=== PATIENT | male | born 1950 | race American Indian/Alaskan Native ===

== ENCOUNTER 2017-08-25 05:27 | Emergency (ER) | payer OTHER ==
--- NOTE | 2017-08-25 06:41 | XRay Report ---
FINAL REPORT PROCEDURE: XR CHEST ROUTINE 2V TECHNIQUE: PA and lateral chest radiographs were obtained. CPT 20784 HISTORY: Shortness of breath COMPARISON: No prior studies are available for comparison. FINDINGS: Heart: Normal. Mediastinum/Vessels: Normal. Lungs/Pleural space: Normal. Bony thorax: No acute osseous abnormality. Other: IMPRESSION: There is no evidence of an acute cardiopulmonary process..
[2017-08-25 06:58] LABS: Basophils % (Auto) 0.2 % (0.0-1.8); Eosinophils % (Auto) 0.7 % (0.0-4.3); Hematocrit 43.3 % (35.5-45.6); Hemoglobin 14.1 gm/dl (11.8-15.2); Lymphocytes # (Auto) 1.5 K/mm3 (1.2-5.4); Lymphocytes % (Auto) 23.9 % (13.4-35.0); Mean Corpuscular HGB Conc 33 % (32-34); Mean Corpuscular Hemoglobin 32 pg (28-32); Mean Corpuscular Volume 97 fl (84-94); Monocytes # (Auto) 0.6 K/mm3 (0.0-0.8); Monocytes % (Auto) 10.2 % (0.0-7.3); Platelet Count 145 K/mm3 (140-440); Red Blood Count 4.45 M/mm3 (3.65-5.03); Red Cell Distribution Width 12.6 % (13.2-15.2)
[2017-08-25 07:05] LABS: BUN/Creatinine Ratio 17; Blood Urea Nitrogen 12 mg/dL (9-20); Calcium 9.3 mg/dL (8.4-10.2); Hemolysis Index 15
[2017-08-25] MEDS ORDERED: PROVENTIL IH ONE ×2 (08:37→08:38)
[2017-08-25] MEDS ORDERED: ATROVENT IH ONE ×2 (08:37→08:38)
[2017-08-25] MEDS ORDERED: TYLENOL PO ONE (08:38)
[2017-08-25] MEDS ORDERED: BOOSTRIX IM ONE (08:38)
[2017-08-25] MEDS ORDERED: NACL 0.9% 500 ML 500 ML IV ONE (08:38)
--- NOTE | 2017-08-25 08:39 | Emergency Department Report ---
ED General Adult HPI - General Chief complaint: Dyspnea/Respdistress Stated complaint: DIFFICULTY IN BREATHING Time Seen by Provider: 08/25/17 08:13 Source: patient, EMS (ems notes not available at time of chart dictation), RN notes reviewed Mode of arrival: Stretcher Limitations: No Limitations - History of Present Illness Initial comments: This is a 66-year-old male who is unknown to this provider previously, oxygen dependent, has a past medical history of COPD, hypertension. Patient presents to the ER with complaint of lip pain and swelling after mechanical fall yesterday. He denies severe headache, chest pain, abdominal pain, midline neck pain, weakness, numbness. He has chronic shortness of breath, which is not a new, worsening or different. He denies DVT, pulmonary embolus risk factors. he has chronic cough which is not a new, worsening or different, and he is not bringing up any significant mucus -: Sudden Location: face, mouth Quality: aching Consistency: constant Improves with: rest Worsens with: movement Associated Symptoms: cough, shortness of breath. denies: confusion, chest pain , diaphoresis, fever/chills, headaches, loss of appetite, malaise, nausea/ vomiting, rash, seizure, syncope, weakness - Related Data Previous Rx's Medication Instructions Recorded Last Taken Type Acetaminophen [Tylenol Arthritis] 650 mg PO Q6HR PRN #30 tablet.er 08/25/17 Unknown Rx Albuterol Sulfate [Proair 90 mcg IH Q4HR PRN #2 aer.pow.ba 08/25/17 Unknown Rx Respiclick] Bacitracin Zinc Oint [Antibiotic 1 applicatio TP BID #1 tube 08/25/17 Unknown Rx Oint] Ibuprofen [Motrin] 600 mg PO Q8H PRN #30 tablet 08/25/17 Unknown Rx Ipratropium Kenvir [Atrovent Hfa] 12.9 gm IH Q4HR #2 hfa.aer.ad 08/25/17 Unknown Rx Allergies Allergy/AdvReac Type Severity Reaction Status Date / Time No Known Allergies Allergy Unverified 08/25/17 06:06 ED Review of Systems ROS: Stated complaint: DIFFICULTY IN BREATHING Other details as noted in HPI Comment: All other systems reviewed and negative ED Past Medical Hx - Social History Smoking Status: Unknown if ever smoked Substance Use Type: None - Medications Home Medications: Home Medications Medication Instructions Recorded Confirmed Last Taken Type Acetaminophen [Tylenol Arthritis] 650 mg PO Q6HR PRN #30 tablet.er 08/25/17 Unknown Rx Albuterol Sulfate [Proair 90 mcg IH Q4HR PRN #2 aer.pow.ba 08/25/17 Unknown Rx Respiclick] Bacitracin Zinc Oint [Antibiotic 1 applicatio TP BID #1 tube 08/25/17 Unknown Rx Oint] Ibuprofen [Motrin] 600 mg PO Q8H PRN #30 tablet 08/25/17 Unknown Rx Ipratropium Kenvir [Atrovent Hfa] 12.9 gm IH Q4HR #2 hfa.aer.ad 08/25/17 Unknown Rx ED Physical Exam - General Limitations: No Limitations General appearance: alert, in no apparent distress - Head Head exam: Present: atraumatic, normocephalic - Eye Eye exam: Present: normal appearance, PERRL, EOMI. Absent: nystagmus - ENT ENT exam: Present: mucous membranes moist, TM's normal bilaterally, normal external ear exam, other (there is no mastoid tenderness. Tympanic membranes clear on the right side, left external auditory canal is obscured by wax.). Absent: normal exam (superficial superior and inferior lip swelling is noted. No obvious laceration. No induration. Crust-like discharge noted on the superior frenulum.), normal orophraynx - Neck Neck exam: Present: normal inspection, full ROM. Absent: tenderness, meningismus - Respiratory Respiratory exam: Present: normal lung sounds bilaterally, decreased breath sounds. Absent: respiratory distress, wheezes, rales, rhonchi, stridor - Cardiovascular Cardiovascular Exam: Present: regular rate, normal rhythm, normal heart sounds. Absent: bradycardia, tachycardia, irregular rhythm, systolic murmur, diastolic murmur, rubs, gallop - GI/Abdominal GI/Abdominal exam: Present: soft, normal bowel sounds. Absent: distended, tenderness, guarding, rebound, rigid, pulsatile mass - Rectal Rectal exam: Present: deferred - Extremities Exam Extremities exam: Present: normal inspection, full ROM, normal capillary refill , other (there is no palpable cord. There is negative Homans sign.). Absent: pedal edema, calf tenderness - Back Exam Back exam: Present: normal inspection, full ROM. Absent: tenderness, CVA tenderness (R), paraspinal tenderness, vertebral tenderness - Neurological Exam Neurological exam: Present: alert, oriented X3, CN II-XII intact, normal gait, other (Extraocular movements intact. Tongue midline. No facial droop. Facial sensation intact to light touch in the V1, V2, V3 distribution bilaterally. 5 and 5 strength in 4 extremities.. Sensation is intact to light touch in 4 extremities.). Absent: motor sensory deficit - Psychiatric Psychiatric exam: Present: normal affect, normal mood - Skin Skin exam: Present: warm, dry, intact, normal color. Absent: rash ED Course Vital Signs 08/25/17 08/25/17 08/25/17 05:30 05:46 06:00 Temperature Pulse Rate 72 80 Pulse Rate [ Anterior Bilateral Throughout] Respiratory 22 27 H Rate Respiratory Rate [Anterior Bilateral Throughout] Blood Pressure 162/66 163/65 Blood Pressure [Left] O2 Sat by Pulse 96 97 96 Oximetry 08/25/17 08/25/17 08/25/17 06:16 06:30 06:46 Temperature Pulse Rate 84 81 Pulse Rate [ Anterior Bilateral Throughout] Respiratory 28 H 21 17 Rate Respiratory Rate [Anterior Bilateral Throughout] Blood Pressure 163/65 163/65 Blood Pressure [Left] O2 Sat by Pulse 97 95 100 Oximetry 08/25/17 08/25/17 08/25/17 06:58 06:59 07:39 Temperature 97.8 F 98.5 F Pulse Rate 102 H 103 H Pulse Rate [ Anterior Bilateral Throughout] Respiratory 32 H Rate Respiratory Rate [Anterior Bilateral Throughout] Blood Pressure Blood Pressure 117/85 [Left] O2 Sat by Pulse 100 Oximetry 08/25/17 08/25/17 09:10 10:02 Temperature Pulse Rate Pulse Rate [ 86 102 H Anterior Bilateral Throughout] Respiratory Rate Respiratory 20 20 Rate [Anterior Bilateral Throughout] Blood Pressure Blood Pressure [Left] O2 Sat by Pulse Oximetry - Reevaluation(s) Reevaluation #1: 08/25/17 10:11 Differential diagnosis, including not limited to: Chronic COPD, contusions, intracranial injury, facial fracture Assessment and plan: This 66-year-old male with a primary complaint of traumatic lip swelling. He is afebrile with reassuring vital signs, has a GCS of 15, with an NIH score of 0 and is clinically sober.Patient is clinically sober at this time. The cervical spine is cleared through nexus and salvadorean c spine rule Noncontrast CT scan of the brain and face did not demonstrate any significant traumatic abnormalities that would require transfer or emergent surgical intervention. The patient is not having left-sided ear pain or left-sided mastoid tenderness, bilateral mastoids are nontender, clinically therefore patient's does not have mastoiditis. The patient is chronically short of breath but is not acutely decompensated, his arterial blood gas to al showed mild hypercapnia but he was not encephalopathic, and he is not wheezing. The patient will be discharged with as needed albuterol, Atrovent, pain medication, warm compresses, and bacitracin. He was also given an a tetanus vaccination. He can follow up with an outpatient ENT or facial plastics person for his multiple incidental CT scan findings. ED Medical Decision Making - Lab Data Result diagrams: 08/25/17 06:24 08/25/17 06:24 Vital Signs 08/25/17 08/25/17 08/25/17 05:30 05:46 06:00 Temperature Pulse Rate 72 80 Pulse Rate [ Anterior Bilateral Throughout] Respiratory 22 27 H Rate Respiratory Rate [Anterior Bilateral Throughout] Blood Pressure 162/66 163/65 Blood Pressure [Left] O2 Sat by Pulse 96 97 96 Oximetry 08/25/17 08/25/17 08/25/17 06:16 06:30 06:46 Temperature Pulse Rate 84 81 Pulse Rate [ Anterior Bilateral Throughout] Respiratory 28 H 21 17 Rate Respiratory Rate [Anterior Bilateral Throughout] Blood Pressure 163/65 163/65 Blood Pressure [Left] O2 Sat by Pulse 97 95 100 Oximetry 08/25/17 08/25/17 08/25/17 06:58 06:59 07:39 Temperature 97.8 F 98.5 F Pulse Rate 102 H 103 H Pulse Rate [ Anterior Bilateral Throughout] Respiratory 32 H Rate Respiratory Rate [Anterior Bilateral Throughout] Blood Pressure Blood Pressure 117/85 [Left] O2 Sat by Pulse 100 Oximetry 08/25/17 08/25/17 09:10 10:02 Temperature Pulse Rate Pulse Rate [ 86 102 H Anterior Bilateral Throughout] Respiratory Rate Respiratory 20 20 Rate [Anterior Bilateral Throughout] Blood Pressure Blood Pressure [Left] O2 Sat by Pulse Oximetry Lab Results 08/25/17 08/25/17 08/25/17 Range/Units 06:24 06:24 09:15 WBC 6.4 (4.5-11.0) K/mm3 RBC 4.45 (3.65-5.03) M/mm3 Hgb 14.1 (11.8-15.2) gm/dl Hct 43.3 (35.5-45.6) % MCV 97 H (84-94) fl MCH 32 (28-32) pg MCHC 33 (32-34) % RDW 12.6 L (13.2-15.2) % Plt Count 145 (140-440) K/mm3 Lymph % (Auto) 23.9 (13.4-35.0) % [place] % (Auto) 10.2 H (0.0-7.3) % Eos % (Auto) 0.7 (0.0-4.3) % Baso % (Auto) 0.2 (0.0-1.8) % Lymph # 1.5 (1.2-5.4) K/mm3 [place] # 0.6 (0.0-0.8) K/mm3 Eos # 0.0 (0.0-0.4) K/mm3 Baso # 0.0 (0.0-0.1) K/mm3 Seg Neutrophils % 65.0 (40.0-70.0) % Seg Neutrophils # 4.1 (1.8-7.7) K/mm3 POC ABG pH 7.389 (7.35-7.45) POC ABG pCO2 61.2 H (35-45) POC ABG pO2 91 (80-105) POC ABG HCO3 37.0 POC ABG Total CO2 39 POC ABG O2 Sat 97 POC ABG Base Excess 12 FiO2 32 % Sodium 138 (137-145) mmol/L Potassium 4.0 (3.6-5.0) mmol/L Chloride 94.4 L (98-107) mmol/L Carbon Dioxide 35 H (22-30) mmol/L Anion Gap 13 mmol/L BUN 12 (9-20) mg/dL Creatinine 0.7 L (0.8-1.5) mg/dL Estimated GFR > 60 ml/min BUN/Creatinine Ratio 17 % Glucose 98 (75-100) mg/dL Calcium 9.3 (8.4-10.2) mg/dL - EKG Data -: EKG Interpreted by Me - EKG Data When compared to previous EKG there are: previous EKG unavailable 08/25/17 10:11 Normal sinus, 99 bpm, left axis deviation, a chill enlargement, motion artifact , left anterior fascicular block, abnormal EKG, not a stemi - Radiology Data Radiology results: report reviewed, image reviewed Print Report Referring Physician: JAMA WRAY Patient Name: BOWEN HORN Date of : 1950 Sex: Male Report Date: 2017-08-25 Report Status: Finalized Findings [facility] [address] [place] [address] Cat Scan Report Signed Patient: BOWEN HORN MR#: [id number] : 1950 Acct:[id number] Age/Sex: 66 / M ADM Date: 08/25/17 Loc: ED Attending Dr: Ordering Physician: JAMA WRAY MD Date of Service: 08/25/17 Procedure(s): CT head/brain wo con Accession Number(s): [id number] cc: JAMA WRAY MD CT HEAD WITHOUT CONTRAST INDICATION: Fall. COMPARISON: None similar. FINDINGS: Noncontrast head CT demonstrates normal ventricles and sulci without acute infarct, hemorrhage, mass effect or midline shift. No abnormal extra axial fluid collections. Mild periventricular and few white matter hypodense small vessel ischemic disease. Grossly normal posterior fossa with preserved basilar cisterns. Normal imaged eye globes. Clear paranasal sinuses and right mastoid air cells. Extensive left mastoid air cell opacification. Mild atherosclerotic ICA calcifications. Nasal soft tissue swelling though possible with few small nonspecific radiodensities/possible foreign bodies, amongst others, as on axial series 3, images 3-5. Intact calvarium. Normal scalp. Edentulous jaw. Cervical spondylosis. CONCLUSION: Severe left mastoiditis without acute intracranial CT abnormality, as described. Nasal injury suspected, as described. Please correlate. Thank you for the opportunity to participate in this patient's care. Transcribed By: RS Dictated By: PAIGE GILLIS MD Electronically Authenticated By: PAIGE GILLIS MD Signed Date/Time: 08/25/17 0916 Print Report Referring Physician: JAMA WRAY Patient Name: BOWEN HORN Date of : 1950 Sex: Male Report Date: 2017-08-25 Report Status: Finalized Findings [facility] [address] [place] [id number] Cat Scan Report Signed Patient: BOWEN HORN MR#: [id number] : 1950 Acct:[id number] Age/Sex: 66 / M ADM Date: 08/25/17 Loc: ED Attending Dr: Ordering Physician: JAMA WRAY MD Date of Service: 08/25/17 Procedure(s): CT facial bones wo con Accession Number(s): [id number] cc: JAMA WRYA MD CT FACIAL BONES WITHOUT CONTRAST: INDICATION: Fall. Facial trauma, swelling. COMPARISON: None similar. FINDINGS: Noncontrast axial, sagittal and coronal CT reconstructions through the face suggests soft tissue swelling of the nose and upper lip/anterior face, right slightly more than left. Numerous nonspecific superficial subcutaneous and bilateral malar hyperdensities/calcifications incidentally noted as on axial series 2, images 13-40. Few small nasal soft tissue radiodensities as on axial images 38 and 39 also nonspecific. Nasal bone grossly intact as also the remainder facial bones. Preserved airway. Mild left maxillary sinus mucosal nasal thickening inferiorly. Clear remainder anterior paranasal sinuses and right mastoid air cells. Left mastoid air cells completely opacified with minimal mucosal thickening in the left middle ear posteriorly also possible as on axial image 83, series 3. Normal eye globes and imaged intracranial appearance. Slight leftward nasal septal deviation and approximately 4 mm leftward nasal septal spur as on coronal image 41. Patent ostiomeatal complexes. Intact TMJs. Cervical spondylosis. CONCLUSION: No acute significantly displaced facial fractures, though nose/anterior face soft tissue posttraumatic swelling suspected with severe left mastoiditis/slight otitis media and mild left maxillary sinus mucosal thickening incidentally noted, as described. Please correlate. Thank you for the opportunity to participate in this patient's care. Transcribed By: RS Dictated By: PAIGE GILLIS MD Electronically Authenticated By: PAIGE GILLIS MD Signed Date/Time: 08/25/17928 DD/ 7 TD/TT: 08/25/17928 Print Report Referring Physician: ED DOC Patient Name: BOWEN HORN Date of : 1950 Sex: Male Report Date: 2017-08-25 Report Status: Finalized Findings [facility] [address] [place] [address] XRay Report Signed Patient: BOWEN HORN MR#: [id number] : 1950 Acct:[id number] Age/Sex: 66 / M ADM Date: 08/25/17 Loc: ED Attending Dr: Ordering Physician: DENISE CAMACHO MD Date of Service: 08/25/17 Procedure(s): XR chest routine 2V Accession Number(s): [id number] cc: DENISE CAMACHO MD Fluoro Time In Minutes: FINAL REPORT PROCEDURE: XR CHEST ROUTINE 2V TECHNIQUE: PA and lateral chest radiographs were obtained. CPT 42374 HISTORY: Shortness of breath COMPARISON: No prior studies are available for comparison. FINDINGS: Heart: Normal. Mediastinum/Vessels: Normal. Lungs/Pleural space: Normal. Bony thorax: No acute osseous abnormality. Other: IMPRESSION: There is no evidence of an acute cardiopulmonary process.. Transcribed By: [facility] Dictated By: PADMINI POSADAS MD Electronically Authenticated By: PADMINI POSADAS MD Signed Date/Time: 08/25/17636 Critical care attestation.: If time is entered above; I have spent that time in minutes in the direct care of this critically ill patient, excluding procedure time. ED Disposition Clinical Impression: History of COPD, Facial contusion Disposition: DC-01 TO HOME OR SELFCARE Is pt being admited?: No Does the pt Need Aspirin: No Condition: Stable Instructions: Chronic Bronchitis (ED), Contusion in Adults (ED) Additional Instructions: Rest, and avoid heavy lifting and avoid strenuous physical activity. Continue home oxygen therapy, take the medications as needed/directed. Apply warm compresses to swollen lip. Use albuterol, Atrovent as needed for cough, wheezing, shortness of breath as directed. CT scan of the brain, facial bones demonstrated no fracture or significant injury, however multiple incidental nonemergent findings were noted, which should be followed up within the next 4- 6 weeks. Therefore, follow-up with either a facial plastic surgeon, or otolaryngology specialist for these findings within the recommended timeframe. Dr. Lawson is a local chairman. Dr. Marquez is a local plastic surgeon. Follow up with a case specialist within the next 4-[address] Obregon is a local case specialist. Follow-up with primary care doctor within the next 4-[address] Demarco is a local primary care doctor. Return to the ER right away with new pain, worsened pain, migration of pain, fevers, chills, lethargy, irritability, projectile vomiting, change in mental status, confusion, inability to tolerate liquid feeds. Referrals: PRIMARY CARE, [Primary Care Provider] - 3-5 Days MARCO STUBBS MD [Staff Physician] - 3-5 Days NILAY MARQUEZ MD [Staff Physician] - 3-5 Days LIU DEMARCO MD [Staff Physician] - 3-5 Days BEBE OBREGON MD [Staff Physician] - 3-5 Days
--- NOTE | 2017-08-25 09:23 | Cat Scan Report ---
CT HEAD WITHOUT CONTRAST INDICATION: Fall. COMPARISON: None similar. FINDINGS: Noncontrast head CT demonstrates normal ventricles and sulci without acute infarct, hemorrhage, mass effect or midline shift. No abnormal extra axial fluid collections. Mild periventricular and few white matter hypodense small vessel ischemic disease. Grossly normal posterior fossa with preserved basilar cisterns. Normal imaged eye globes. Clear paranasal sinuses and right mastoid air cells. Extensive left mastoid air cell opacification. Mild atherosclerotic ICA calcifications. Nasal soft tissue swelling though possible with few small nonspecific radiodensities/possible foreign bodies, amongst others, as on axial series 3, images 3-5. Intact calvarium. Normal scalp. Edentulous jaw. Cervical spondylosis. CONCLUSION: Severe left mastoiditis without acute intracranial CT abnormality, as described. Nasal injury suspected, as described. Please correlate. Thank you for the opportunity to participate in this patient's care.
--- NOTE | 2017-08-25 09:35 | Cat Scan Report ---
CT FACIAL BONES WITHOUT CONTRAST: INDICATION: Fall. Facial trauma, swelling. COMPARISON: None similar. FINDINGS: Noncontrast axial, sagittal and coronal CT reconstructions through the face suggests soft tissue swelling of the nose and upper lip/anterior face, right slightly more than left. Numerous nonspecific superficial subcutaneous and bilateral malar hyperdensities/calcifications incidentally noted as on axial series 2, images 13-40. Few small nasal soft tissue radiodensities as on axial images 38 and 39 also nonspecific. Nasal bone grossly intact as also the remainder facial bones. Preserved airway. Mild left maxillary sinus mucosal nasal thickening inferiorly. Clear remainder anterior paranasal sinuses and right mastoid air cells. Left mastoid air cells completely opacified with minimal mucosal thickening in the left middle ear posteriorly also possible as on axial image 83, series 3. Normal eye globes and imaged intracranial appearance. Slight leftward nasal septal deviation and approximately 4 mm leftward nasal septal spur as on coronal image 41. Patent ostiomeatal complexes. Intact TMJs. Cervical spondylosis. CONCLUSION: No acute significantly displaced facial fractures, though nose/anterior face soft tissue posttraumatic swelling suspected with severe left mastoiditis/slight otitis media and mild left maxillary sinus mucosal thickening incidentally noted, as described. Please correlate. Thank you for the opportunity to participate in this patient's care.
[2017-08-25 11:17] VITALS: BP 118/64
== END 2017-08-25 11:18 | disposition home or self-care (01) ==
LOC: ED 05:27
DX: S00.83XA Contusion of other part of head, initial encounter (principal); J44.9 Chronic obstructive pulmonary disease, unspecified; W19.XXXA Unspecified fall, initial encounter; Y93.89 Activity, other specified; Y92.89 Other specified places as the place of occurrence of the external cause; Y99.8 Other external cause status
CPT/HCPCS: 36415; 70450; 70486; 71046; 80048; 82803; 85025; 90471; 90715; 93005; 93010; 94644; 99285; J7040

== ENCOUNTER 2018-08-24 20:08 | Inpatient (IN) | payer MEDICARE ==
[2018-08-24] MEDS ORDERED: ATROVENT IH ONE ×2 (20:31→20:48)
[2018-08-24] MEDS ORDERED: PROVENTIL IH ONE ×2 (20:31→20:48)
[2018-08-24] MEDS ORDERED: NACL 0.9% 1000 ML 1,000 ML IV ONE (20:48)
[2018-08-24] MEDS ORDERED: SOLU-Medrol IV ONE (20:48)
--- NOTE | 2018-08-24 20:49 | Emergency Department Report ---
ED Shortness of Breath HPI - General Chief Complaint: Dyspnea/Respdistress Stated Complaint: BRIELLE Time Seen by Provider: 08/24/18 20:47 Source: EMS (ems notes not available at time of chart dictation), RN notes reviewed, old records reviewed Mode of arrival: Stretcher Limitations: Physical Limitation - History of Present Illness Initial Comments: This is a 67-year-old gentleman. The patient states he does not have a local primary care doctor that he can recall. He believes that his primary material requisitioner is Dr. Lakhani His past medical history includes COPD, home oxygen dependent, hypertension The patient presents to the emergency room today with a complaint of painless cough, wheezing, mucus production and shortness of breath. He denies DVT, pulmonary embolus risk factors. He is treated with albuterol, Atrovent, steroids. He feels improved. He endorses coughing so much that he has right- sided neck pain, and difficulty with swallowing food. MD Complaint: shortness of breath, cough -: Gradual Severity: moderate Consistency: constant Improves With: oxygen, rest, bronchodilators, upright position, medication Worsens With: lying flat, exertion, eating Known History Of: COPD - Related Data Previous Rx's Medication Instructions Recorded Last Taken Type Acetaminophen [Tylenol Arthritis] 650 mg PO Q6HR PRN #30 tablet.er 08/25/17 Unknown Rx Albuterol Sulfate [Proair 90 mcg IH Q4HR PRN #2 aer.pow.ba 08/25/17 Unknown Rx Respiclick] Bacitracin Zinc Oint [Antibiotic 1 applicatio TP BID #1 tube 08/25/17 Unknown Rx Oint] Ibuprofen [Motrin] 600 mg PO Q8H PRN #30 tablet 08/25/17 Unknown Rx Ipratropium [place] [Atrovent Hfa] 12.9 gm IH Q4HR #2 hfa.[email or web address] 08/25/17 Unknown Rx Allergies Allergy/AdvReac Type Severity Reaction Status Date / Time No Known Allergies Allergy Unverified 08/25/17 06:06 ED Review of Systems ROS: Stated complaint: BRIELLE Other details as noted in HPI Constitutional: malaise. denies: fever Eyes: denies: eye discharge ENT: throat pain, congestion Respiratory: cough, shortness of breath, SOB with exertion, SOB at rest, wheezing Cardiovascular: dyspnea on exertion Gastrointestinal: denies: nausea, vomiting Genitourinary: denies: dysuria Musculoskeletal: arthralgia Skin: denies: lesions Neurological: weakness Psychiatric: anxiety ED Past Medical Hx - Past Medical History Hx COPD: Yes Additional medical history: emphysema - Social History Smoking Status: Former Smoker Substance Use Type: Alcohol - Medications Home Medications: Home Medications Medication Instructions Recorded Confirmed Last Taken Type Acetaminophen [Tylenol Arthritis] 650 mg PO Q6HR PRN #30 tablet.er 08/25/17 Unknown Rx Albuterol Sulfate [Proair 90 mcg IH Q4HR PRN #2 aer.pow.ba 08/25/17 Unknown Rx Respiclick] Bacitracin Zinc Oint [Antibiotic 1 applicatio TP BID #1 tube 08/25/17 Unknown Rx Oint] Ibuprofen [Motrin] 600 mg PO Q8H PRN #30 tablet 08/25/17 Unknown Rx Ipratropium [place] [Atrovent Hfa] 12.9 gm IH Q4HR #2 hfa.aer.ad 08/25/17 Unknown Rx ED Physical Exam - General Limitations: Physical Limitation General appearance: alert, in distress - Head Head exam: Present: atraumatic, normocephalic - Eye Eye exam: Present: normal appearance, EOMI. Absent: nystagmus - ENT ENT exam: Present: normal orophraynx, mucous membranes moist, normal external ear exam, other (patient is edentulous. Speaking in full sentences. There is no stridor. There is no elevation of the base of the tongue.) - Neck Neck exam: Present: normal inspection, full ROM. Absent: tenderness, meningismus - Respiratory Respiratory exam: Present: respiratory distress, wheezes, rhonchi, accessory muscle use, decreased breath sounds - Cardiovascular Cardiovascular Exam: Present: regular rate, normal rhythm, normal heart sounds. Absent: bradycardia, tachycardia, irregular rhythm, systolic murmur, diastolic murmur, rubs, gallop - GI/Abdominal GI/Abdominal exam: Present: soft. Absent: distended, tenderness, guarding, rebound, rigid, pulsatile mass - Rectal Rectal exam: Present: deferred - Extremities Exam Extremities exam: Present: normal inspection, full ROM, other (2+ pulses noted in the bilateral upper, lower extremities. Compartments soft. No long bony tenderness. The pelvis is stable.). Absent: pedal edema, calf tenderness - Back Exam Back exam: Present: normal inspection, full ROM. Absent: tenderness, CVA tenderness (R), CVA tenderness (L), paraspinal tenderness, vertebral tenderness - Neurological Exam Neurological exam: Present: alert, other (Extraocular movements intact. Tongue midline. No facial droop. Facial sensation intact to light touch in the V1, V2, V3 distribution bilaterally. 5 and 5 strength in 4 extremities.. Sensation is intact to light touch in 4 extremities.). Absent: motor sensory deficit - Psychiatric Psychiatric exam: Present: anxious - Skin Skin exam: Present: warm, dry, intact, normal color. Absent: rash ED Course Vital Signs 08/24/18 08/24/18 08/24/18 20:22 20:26 20:30 Temperature 98.2 F Pulse Rate 95 H 106 H 109 H Pulse Rate [ 102 H Posterior Bilateral Throughout] Respiratory 24 21 Rate Respiratory 18 Rate [Posterior Bilateral Throughout] Blood Pressure 136/92 Blood Pressure 136/92 [Left] O2 Sat by Pulse 99 99 Oximetry 08/24/18 08/24/18 08/24/18 20:46 21:00 21:15 Temperature Pulse Rate 105 H 102 H 105 H Pulse Rate [ Posterior Bilateral Throughout] Respiratory 19 11 L 22 Rate Respiratory Rate [Posterior Bilateral Throughout] Blood Pressure 129/85 129/94 126/86 Blood Pressure [Left] O2 Sat by Pulse 99 96 96 Oximetry 08/24/18 08/24/18 08/24/18 21:30 21:32 21:46 Temperature Pulse Rate 106 H 104 H Pulse Rate [ 107 H Posterior Bilateral Throughout] Respiratory 19 Rate Respiratory 22 Rate [Posterior Bilateral Throughout] Blood Pressure 136/83 136/84 Blood Pressure [Left] O2 Sat by Pulse 95 Oximetry - Reevaluation(s) Reevaluation #1: 08/24/18 22:14 We'll defer to inpatient team to evaluate leukopenia and thrombocytopenia. ED Medical Decision Making - Lab Data Result diagrams: 08/24/18 20:40 08/24/18 20:40 Vital Signs 08/24/18 08/24/18 08/24/18 20:22 20:26 20:30 Temperature 98.2 F Pulse Rate 95 H 106 H 109 H Pulse Rate [ 102 H Posterior Bilateral Throughout] Respiratory 24 21 Rate Respiratory 18 Rate [Posterior Bilateral Throughout] Blood Pressure 136/92 Blood Pressure 136/92 [Left] O2 Sat by Pulse 99 99 Oximetry 08/24/18 08/24/18 08/24/18 20:46 21:00 21:15 Temperature Pulse Rate 105 H 102 H 105 H Pulse Rate [ Posterior Bilateral Throughout] Respiratory 19 11 L 22 Rate Respiratory Rate [Posterior Bilateral Throughout] Blood Pressure 129/85 129/94 126/86 Blood Pressure [Left] O2 Sat by Pulse 99 96 96 Oximetry 08/24/18 08/24/18 08/24/18 21:30 21:32 21:46 Temperature Pulse Rate 106 H 104 H Pulse Rate [ 107 H Posterior Bilateral Throughout] Respiratory 19 Rate Respiratory 22 Rate [Posterior Bilateral Throughout] Blood Pressure 136/83 136/84 Blood Pressure [Left] O2 Sat by Pulse 95 Oximetry Lab Results 08/24/18 08/24/18 08/24/18 Range/Units 20:40 20:40 21:10 WBC 3.2 L (4.5-11.0) K/mm3 RBC 4.39 (3.65-5.03) M/mm3 Hgb 14.1 (11.8-15.2) gm/dl Hct 41.5 (35.5-45.6) % MCV 95 H (84-94) fl MCH 32 (28-32) pg MCHC 34 (32-34) % RDW 12.2 L (13.2-15.2) % Plt Count 108 L (140-440) K/mm3 Lymph % (Auto) Grain Shipper Add Manual Diff Complete Total Counted 100 Seg Neutrophils % Grain Shipper Seg Neuts % (Manual) 34.0 L (40.0-70.0) % Band Neutrophils % 0 % Lymphocytes % (Manual) 52.0 H (13.4-35.0) % Reactive Lymphs % (Man) 0 % Monocytes % (Manual) 13.0 H (0.0-7.3) % Eosinophils % (Manual) 1.0 (0.0-4.3) % Basophils % (Manual) 0 (0.0-1.8) % Metamyelocytes % 0 % Myelocytes % 0 % Promyelocytes % 0 % Blast Cells % 0 % Nucleated RBC % Not Reportable Seg Neutrophils # Man 1.1 L (1.8-7.7) K/mm3 Band Neutrophils # 0.0 K/mm3 Lymphocytes # (Manual) 1.7 (1.2-5.4) K/mm3 Abs React Lymphs (Man) 0.0 K/mm3 Monocytes # (Manual) 0.4 (0.0-0.8) K/mm3 Eosinophils # (Manual) 0.0 (0.0-0.4) K/mm3 Basophils # (Manual) 0.0 (0.0-0.1) K/mm3 Metamyelocytes # 0.0 K/mm3 Myelocytes # 0.0 K/mm3 Promyelocytes # 0.0 K/mm3 Blast Cells # 0.0 K/mm3 WBC Morphology Not Reportable Hypersegmented Neuts Not Reportable Hyposegmented Neuts Not Reportable Hypogranular Neuts Not Reportable Smudge Cells Not Reportable Toxic Granulation Not Reportable Toxic Vacuolation Not Reportable Dohle Bodies Not Reportable Pelger-Huet Anomaly Not Reportable Kerry Rods Not Reportable Platelet Estimate Appears decreased Clumped Platelets Not Reportable Plt Clumps, EDTA Not Reportable Large Platelets Not Reportable Giant Platelets Not Reportable Platelet Satelliting Not Reportable Plt Morphology Comment Not Reportable RBC Morphology Not Reportable Dimorphic RBCs Not Reportable Polychromasia Not Reportable Hypochromasia Not Reportable Poikilocytosis Not Reportable Anisocytosis Not Reportable Microcytosis Not Reportable Macrocytosis Not Reportable Spherocytes Not Reportable Pappenheimer Bodies Not Reportable Sickle Cells Not Reportable Target Cells Not Reportable Tear Drop Cells Not Reportable Ovalocytes Few Helmet Cells Not Reportable [place] Bodies Not Reportable [place] Rings Not Reportable Natali Cells Not Reportable Bite Cells Not Reportable Crenated Cell Not Reportable Elliptocytes Not Reportable Acanthocytes (Spur) Not Reportable Rouleaux Not Reportable Hemoglobin C Crystals Not Reportable Schistocytes Not Reportable Malaria parasites Not Reportable Tom Bodies Not Reportable Hem Pathologist Commnt No PT 14.8 (12.2-14.9) Sec. INR 1.19 H (0.87-1.13) Sodium 135 L (137-145) mmol/L Potassium 4.3 (3.6-5.0) mmol/L Chloride 93.0 L (98-107) mmol/L Carbon Dioxide 31 H (22-30) mmol/L Anion Gap 15 mmol/L BUN 12 (9-20) mg/dL Creatinine 0.7 L (0.8-1.5) mg/dL Estimated GFR > 60 ml/min BUN/Creatinine Ratio 17 % Glucose 86 (75-100) mg/dL Calcium 9.3 (8.4-10.2) mg/dL Magnesium (1.7-2.3) mg/dL Total Creatine Kinase (55-170) units/L 08/24/18 Range/Units 21:10 WBC (4.5-11.0) K/mm3 RBC (3.65-5.03) M/mm3 Hgb (11.8-15.2) gm/dl Hct (35.5-45.6) % MCV (84-94) fl MCH (28-32) pg MCHC (32-34) % RDW (13.2-15.2) % Plt Count (140-440) K/mm3 Lymph % (Auto) Add Manual Diff Total Counted Seg Neutrophils % Seg Neuts % (Manual) (40.0-70.0) % Band Neutrophils % % Lymphocytes % (Manual) (13.4-35.0) % Reactive Lymphs % (Man) % Monocytes % (Manual) (0.0-7.3) % Eosinophils % (Manual) (0.0-4.3) % Basophils % (Manual) (0.0-1.8) % Metamyelocytes % % Myelocytes % % Promyelocytes % % Blast Cells % % Nucleated RBC % Seg Neutrophils # Man (1.8-7.7) K/mm3 Band Neutrophils # K/mm3 Lymphocytes # (Manual) (1.2-5.4) K/mm3 Abs React Lymphs (Man) K/mm3 Monocytes # (Manual) (0.0-0.8) K/mm3 Eosinophils # (Manual) (0.0-0.4) K/mm3 Basophils # (Manual) (0.0-0.1) K/mm3 Metamyelocytes # K/mm3 Myelocytes # K/mm3 Promyelocytes # K/mm3 Blast Cells # K/mm3 WBC Morphology Hypersegmented Neuts Hyposegmented Neuts Hypogranular Neuts Smudge Cells Toxic Granulation Toxic Vacuolation Dohle Bodies Pelger-Huet Anomaly Kerry Rods Platelet Estimate Clumped Platelets Plt Clumps, EDTA Large Platelets Giant Platelets Platelet Satelliting Plt Morphology Comment RBC Morphology Dimorphic RBCs Polychromasia Hypochromasia Poikilocytosis Anisocytosis Microcytosis Macrocytosis Spherocytes Pappenheimer Bodies Sickle Cells Target Cells Tear Drop Cells Ovalocytes Helmet Cells [place] Bodies [place] Rings Natali Cells Bite Cells Crenated Cell Elliptocytes Acanthocytes (Spur) Rouleaux Hemoglobin C Crystals Schistocytes Malaria parasites Tom Bodies Hem Pathologist Commnt PT (12.2-14.9) Sec. INR (0.87-1.13) Sodium (137-145) mmol/L Potassium (3.6-5.0) mmol/L Chloride (98-107) mmol/L Carbon Dioxide (22-30) mmol/L Anion Gap mmol/L BUN (9-20) mg/dL Creatinine (0.8-1.5) mg/dL Estimated GFR ml/min BUN/Creatinine Ratio % Glucose (75-100) mg/dL Calcium (8.4-10.2) mg/dL Magnesium 2.20 (1.7-2.3) mg/dL Total Creatine Kinase 103 (55-170) units/L - EKG Data -: EKG Interpreted by Fl EKG shows normal: sinus rhythm Rate: tachycardia - EKG Data When compared to previous EKG there are: no significant change 08/24/18 22:12 This is a sinus tachycardia, 100 bpm, normal axis, QTC prolonged, poor R progression, atrial enlargement, motion artifact, no endorsement of chest pain, this is an abnormal EKG, it is not consistent with ST elevation myocardial infarction, appears grossly unchanged from prior EKG from 08/25/2017, with the exception of resolved left axis deviation, and resolved left anterior fascicular block. - Radiology Data Radiology results: report reviewed, image reviewed X-ray of the chest is negative for acute disease. Chronic findings noted. Emphysematous findings noted. - Medical Decision Making Differential diagnosis, including but not limited to: Bronchitis, pneumonia, COPD exacerbation Assessment and plan: 67-year-old gentleman who is ill-appearing, known history of COPD, with cough, wheezing, shortness of breath, retractions. He has no DVT or pulmonary embolus risk factors. He is low risk by well's criteria. He is improved clinically. Still having difficulty breathing, we will admit to the medical service for COPD exacerbation. Dr. Gonzalez of the medical service to admit the patient. Critical care attestation.: If time is entered above; I have spent that time in minutes in the direct care of this critically ill patient, excluding procedure time. ED Disposition Clinical Impression: COPD exacerbation Disposition: OP ADMIT IP TO THIS HOSP Is pt being admited?: Yes Condition: Fair Instructions: Chronic Obstructive Pulmonary Disease (ED) Referrals: ZAKIA SORIA MD [Primary Care Provider] - 3-5 Days
[2018-08-24 21:15] LABS: Hematocrit 41.5 % (35.5-45.6); Hemoglobin 14.1 gm/dl (11.8-15.2); Mean Corpuscular HGB Conc 34 % (32-34); Mean Corpuscular Volume 95 fl (84-94); Platelet Count 108 K/mm3 (140-440); Red Blood Count 4.39 M/mm3 (3.65-5.03); Red Cell Distribution Width 12.2 % (13.2-15.2)
--- NOTE | 2018-08-24 21:24 | XRay Report ---
PROCEDURE: XR CHEST 1V AP TECHNIQUE: Chest radiograph single view. HISTORY: Dyspnea COMPARISONS: Comparison is August 25, 2017 FINDINGS: Heart: Normal. Mediastinum/Vessels: Normal. Lungs/Pleural space: Lungs are hyperinflated with flattening of the diaphragm. No focal infiltrate id entified Bony thorax: No acute osseous abnormality. Life support devices: None. IMPRESSION: Findings most consistent with COPD. This document is electronically signed by Champ Luque MD., August 24 2018 09:21:43 PM ET
[2018-08-24 21:31] LABS: BUN/Creatinine Ratio 17; Blood Urea Nitrogen 12 mg/dL (9-20); Calcium 9.3 mg/dL (8.4-10.2); Hemolysis Index 25
[2018-08-24 21:40] LABS: INR 1.19 (0.87-1.13)
[2018-08-24 21:51] LABS: Total Cells Counted 100
[2018-08-24 21:52] LABS: Basophils % (Manual) 0 % (0.0-1.8); Ovalocytes Few; Platelet Estimate Appears Decreased
[2018-08-24] MEDS ORDERED: VIBRAMYCIN PO ONE (22:09)
[2018-08-24] MEDS ORDERED: ZOFRAN IV PRN (22:33)
[2018-08-24] MEDS ORDERED: TYLENOL PO PRN (22:33)
--- NOTE | 2018-08-24 22:42 | History and Physical Report ---
<REJI SLAUGHTER - Last Filed: 08/25/18 03:28> History of Present Illness Date of examination: 08/24/18 Date of admission: 08/24/2018 Chief complaint: Shortness of breath History of present illness: Patient is a 67-year-old male with PMHx of COPD (home O2 dependent), hypertension, tobacco use disorder who presents to the ER with complaints of productive cough, wheezing, shortness of breath 2 days. Patient states that he had been having trouble breathing at home, he took his nebulizer treatment without relief of his symptoms, patient also reports that the symptoms are associated with shortness of breath, cough. Patient states that he had been coughing for 2 days with whitish sputum production, he complains of increase shortness of breath with activities, chest congestion that has been going on for a week. Patient also reports problem swallowing solid food that is concerning to him, denies sore throat, denies hemoptysis, denies chest pain, denies seizure, denies chills. He reports that he follow with [facility] is Dr. Lakhani for his lungs problem. Patient was evaluated in the ER and admitted for further evaluation of his pulmonary symptoms. Past History Past Medical History: hypertension Past Surgical History: No surgical history Social history: smoking (since age 14, quit 6 months ago) Family history: no significant family history Medications and Allergies Allergies Allergy/AdvReac Type Severity Reaction Status Date / Time No Known Allergies Allergy Unverified 08/25/17 06:06 Home Medications Medication Instructions Recorded Confirmed Last Taken Type Acetaminophen [Tylenol Arthritis] 650 mg PO Q6HR PRN #30 tablet.er 08/25/17 08/25/18 Unknown Rx Albuterol Sulfate [Proair 90 mcg IH Q4HR PRN #2 aer.pow.ba 08/25/17 08/25/18 2 Days Ago Rx Respiclick] ~08/23/18 Ibuprofen [Motrin] 600 mg PO Q8H PRN #30 tablet 08/25/17 08/25/18 Unknown Rx Ipratropium [place] [Atrovent Hfa] 12.9 gm IH Q4HR #2 hfa.aer.ad 08/25/17 08/25/18 2 Days Ago Rx ~08/23/18 Active Meds: Active Medications Acetaminophen (Tylenol) 650 mg PO Q4H PRN PRN Reason: Pain MILD(1-3)/Fever >100.5/VILLALTA Albuterol/Ipratropium (Duoneb *Not For Prn Use*) 1 ampul IH Q6HRT [facility] Methylprednisolone Sodium Succinate (Solu-Medrol) 80 mg IV Q6HR [facility] Ondansetron HCl (Zofran) 4 mg IV Q8H PRN PRN Reason: Nausea And Vomiting Sodium Chloride (Sodium Chloride Flush Syringe 10 Ml) 10 ml IV BID [facility] Sodium Chloride (Sodium Chloride Flush Syringe 10 Ml) 10 ml IV PRN PRN PRN Reason: LINE FLUSH Review of Systems Respiratory: cough, cough with sputum, shortness of breath, dyspnea on exertion, congestion Exam - Constitutional Vitals: Temp Pulse Resp BP Pulse Ox 98.2 F 104 H 22 136/84 95 08/24/18 20:26 08/24/18 21:46 08/24/18 21:32 08/24/18 21:46 08/24/18 21:46 General appearance: Present: no acute distress, mild distress, cachectic - EENT Eyes: Present: EOM intact ENT: hearing intact - Neck Neck: Present: supple, normal ROM - Respiratory Respiratory effort: labored - Cardiovascular Heart Sounds: Present: S1 & S2 - Extremities Extremities: no ischemia Peripheral Pulses: within normal limits - Abdominal General gastrointestinal: Present: deferred Male genitourinary: Present: deferred - Rectal Rectal Exam: deferred - Integumentary Integumentary: Present: clear, warm, dry - Musculoskeletal Musculoskeletal: strength equal bilaterally - Psychiatric Psychiatric: cooperative - Neurologic Neurologic: moves all extremities Results - Labs CBC & Chem 7: 08/24/18 20:40 08/24/18 20:40 Labs: Laboratory Last Values WBC 3.2 K/mm3 (4.5-11.0) L 08/24/18 20:40 RBC 4.39 M/mm3 (3.65-5.03) 08/24/18 20:40 Hgb 14.1 gm/dl (11.8-15.2) 08/24/18 20:40 Hct 41.5 % (35.5-45.6) 08/24/18 20:40 MCV 95 fl (84-94) H 08/24/18 20:40 MCH 32 pg (28-32) 08/24/18 20:40 MCHC 34 % (32-34) 08/24/18 20:40 RDW 12.2 % (13.2-15.2) L 08/24/18 20:40 Plt Count 108 K/mm3 (140-440) L 08/24/18 20:40 Lymph % (Auto) [facility] 08/24/18 20:40 Add Manual Diff Complete 08/24/18 20:40 Total Counted 100 08/24/18 20:40 Seg Neutrophils % [facility] 08/24/18 20:40 Seg Neuts % (Manual) 34.0 % (40.0-70.0) L 08/24/18 20:40 0 % 08/24/18 20:40 52.0 % (13.4-35.0) H 08/24/18 20:40 Reactive Lymphs % (Man) 0 % 08/24/18 20:40 13.0 % (0.0-7.3) H 08/24/18 20:40 1.0 % (0.0-4.3) 08/24/18 20:40 0 % (0.0-1.8) 08/24/18 20:40 0 % 08/24/18 20:40 0 % 08/24/18 20:40 0 % 08/24/18 20:40 0 % 08/24/18 20:40 Nucleated RBC % Not Reportable 08/24/18 20:40 Seg Neutrophils # Man 1.1 K/mm3 (1.8-7.7) L 08/24/18 20:40 Band Neutrophils # 0.0 K/mm3 08/24/18 20:40 1.7 K/mm3 (1.2-5.4) 08/24/18 20:40 Abs React Lymphs (Man) 0.0 K/mm3 08/24/18 20:40 0.4 K/mm3 (0.0-0.8) 08/24/18 20:40 0.0 K/mm3 (0.0-0.4) 08/24/18 20:40 0.0 K/mm3 (0.0-0.1) 08/24/18 20:40 0.0 K/mm3 08/24/18 20:40 0.0 K/mm3 08/24/18 20:40 0.0 K/mm3 08/24/18 20:40 Blast Cells # 0.0 K/mm3 08/24/18 20:40 WBC Morphology Not Reportable 08/24/18 20:40 Hypersegmented Neuts Not Reportable 08/24/18 20:40 Hyposegmented Neuts Not Reportable 08/24/18 20:40 Hypogranular Neuts Not Reportable 08/24/18 20:40 Not Reportable 08/24/18 20:40 Not Reportable 08/24/18 20:40 Not Reportable 08/24/18 20:40 Not Reportable 08/24/18 20:40 Not Reportable 08/24/18 20:40 Not Reportable 08/24/18 20:40 Appears decreased 08/24/18 20:40 Not Reportable 08/24/18 20:40 Plt Clumps, EDTA Not Reportable 08/24/18 20:40 Not Reportable 08/24/18 20:40 Not Reportable 08/24/18 20:40 Not Reportable 08/24/18 20:40 Plt Morphology Comment Not Reportable 08/24/18 20:40 RBC Morphology Not Reportable 08/24/18 20:40 Dimorphic RBCs Not Reportable 08/24/18 20:40 Not Reportable 08/24/18 20:40 Not Reportable 08/24/18 20:40 Not Reportable 08/24/18 20:40 Not Reportable 08/24/18 20:40 Not Reportable 08/24/18 20:40 Not Reportable 08/24/18 20:40 Not Reportable 08/24/18 20:40 Not Reportable 08/24/18 20:40 Not Reportable 08/24/18 20:40 Not Reportable 08/24/18 20:40 Not Reportable 08/24/18 20:40 Few 08/24/18 20:40 Not Reportable 08/24/18 20:40 Not Reportable 08/24/18 20:40 Not Reportable 08/24/18 20:40 Not Reportable 08/24/18 20:40 Not Reportable 08/24/18 20:40 Not Reportable 08/24/18 20:40 Not Reportable 08/24/18 20:40 Acanthocytes (Spur) Not Reportable 08/24/18 20:40 Rouleaux Not Reportable 08/24/18 20:40 Not Reportable 08/24/18 20:40 Not Reportable 08/24/18 20:40 Not Reportable 08/24/18 20:40 Not Reportable 08/24/18 20:40 Hem Pathologist Commnt No 08/24/18 20:40 PT 14.8 Sec. (12.2-14.9) 08/24/18 21:10 INR 1.19 (0.87-1.13) H 08/24/18 21:10 Sodium 135 mmol/L (137-145) L 08/24/18 20:40 Potassium 4.3 mmol/L (3.6-5.0) 08/24/18 20:40 Chloride 93.0 mmol/L (98-107) L 08/24/18 20:40 Carbon Dioxide 31 mmol/L (22-30) H 08/24/18 20:40 15 mmol/L 08/24/18 20:40 BUN 12 mg/dL (9-20) 08/24/18 20:40 0.7 mg/dL (0.8-1.5) L 08/24/18 20:40 Estimated GFR > 60 ml/min 08/24/18 20:40 17 % 08/24/18 20:40 Glucose 86 mg/dL (75-100) 08/24/18 20:40 Calcium 9.3 mg/dL (8.4-10.2) 08/24/18 20:40 Magnesium 2.20 mg/dL (1.7-2.3) 08/24/18 21:10 103 units/L (55-170) 08/24/18 21:10 Assessment and Plan Assessment and plan: 1. COPD/emphysema with acute exacerbation 2. Hypoxia due to above 3. Acute dyspnea 4. HTN (BP stable) 5. H/o tobbaco used disorder 6. Thrombocytopenia Plan: Pt is admitted to [facility] for COPD Continue nebulizer treatmemt PRN for SOB Pulmocort daily O2 to keep sat > 92% Solumedrol 80mg Q6hr Cough supressent with mucinex Resume home meds Plan of care was d/w pt, voiced understanding Pt's condition and plan of care of care discussed with Advance Directives: Yes VTE prophylaxis?: Mechanical Contraindication Mechanical VTE Prophylaxis: Contraindicated Plan of care discussed with patient/family: Yes <SORAYA HATHAWAY Marco Antonio - Last Filed: 08/25/18 06:01> History of Present Illness Date of admission: 08/24/18 22:33 Medications and Allergies Active Meds: Active Medications Acetaminophen (Tylenol) 650 mg PO Q4H PRN PRN Reason: Pain MILD(1-3)/Fever >100.5/VILLALTA Last Admin: 08/25/18 03:01 Dose: 650 mg Documented by: Albuterol/Ipratropium (Duoneb *Not For Prn Use*) 1 ampul IH Q6HRT [facility] Last Admin: 08/25/18 02:48 Dose: 1 ampul Documented by: Methylprednisolone Sodium Succinate (Solu-Medrol) 80 mg IV Q6HR [facility] Last Admin: 08/25/18 05:06 Dose: 80 mg Documented by: Ondansetron HCl (Zofran) 4 mg IV Q8H PRN PRN Reason: Nausea And Vomiting Pneumococcal Polyvalent Vaccine (Pneumovax 23) 0.5 ml IM .ONCE ONE Stop: 08/25/18 12:01 Sodium Chloride (Sodium Chloride Flush Syringe 10 Ml) 10 ml IV BID [facility] Last Admin: 08/24/18 23:11 Dose: 10 ml Documented by: Sodium Chloride (Sodium Chloride Flush Syringe 10 Ml) 10 ml IV PRN PRN PRN Reason: LINE FLUSH Exam - Constitutional Vitals: Temp Pulse Resp BP Pulse Ox 98.0 F 102 H 20 128/92 96 08/24/18 23:54 08/25/18 02:57 08/25/18 02:57 08/25/18 00:02 08/25/18 02:56 Results - Labs CBC & Chem 7: 08/24/18 20:40 08/24/18 20:40 Labs: Laboratory Last Values WBC 3.2 K/mm3 (4.5-11.0) L 08/24/18 20:40 RBC 4.39 M/mm3 (3.65-5.03) 08/24/18 20:40 Hgb 14.1 gm/dl (11.8-15.2) 08/24/18 20:40 Hct 41.5 % (35.5-45.6) 08/24/18 20:40 MCV 95 fl (84-94) H 08/24/18 20:40 MCH 32 pg (28-32) 08/24/18 20:40 MCHC 34 % (32-34) 08/24/18 20:40 RDW 12.2 % (13.2-15.2) L 08/24/18 20:40 Plt Count 108 K/mm3 (140-440) L 08/24/18 20:40 Lymph % (Auto) [facility] 08/24/18 20:40 Add Manual Diff Complete 08/24/18 20:40 Total Counted 100 08/24/18 20:40 Seg Neutrophils % [facility] 08/24/18 20:40 Seg Neuts % (Manual) 34.0 % (40.0-70.0) L 08/24/18 20:40 0 % 08/24/18 20:40 52.0 % (13.4-35.0) H 08/24/18 20:40 Reactive Lymphs % (Man) 0 % 08/24/18 20:40 13.0 % (0.0-7.3) H 08/24/18 20:40 1.0 % (0.0-4.3) 08/24/18 20:40 0 % (0.0-1.8) 08/24/18 20:40 0 % 08/24/18 20:40 0 % 08/24/18 20:40 0 % 08/24/18 20:40 0 % 08/24/18 20:40 Nucleated RBC % Not Reportable 08/24/18 20:40 Seg Neutrophils # Man 1.1 K/mm3 (1.8-7.7) L 08/24/18 20:40 Band Neutrophils # 0.0 K/mm3 08/24/18 20:40 1.7 K/mm3 (1.2-5.4) 08/24/18 20:40 Abs React Lymphs (Man) 0.0 K/mm3 08/24/18 20:40 0.4 K/mm3 (0.0-0.8) 08/24/18 20:40 0.0 K/mm3 (0.0-0.4) 08/24/18 20:40 0.0 K/mm3 (0.0-0.1) 08/24/18 20:40 0.0 K/mm3 08/24/18 20:40 0.0 K/mm3 08/24/18 20:40 0.0 K/mm3 08/24/18 20:40 Blast Cells # 0.0 K/mm3 08/24/18 20:40 WBC Morphology Not Reportable 08/24/18 20:40 Hypersegmented Neuts Not Reportable 08/24/18 20:40 Hyposegmented Neuts Not Reportable 08/24/18 20:40 Hypogranular Neuts Not Reportable 08/24/18 20:40 Not Reportable 08/24/18 20:40 Not Reportable 08/24/18 20:40 Not Reportable 08/24/18 20:40 Not Reportable 08/24/18 20:40 Not Reportable 08/24/18 20:40 Not Reportable 08/24/18 20:40 Appears decreased 08/24/18 20:40 Not Reportable 08/24/18 20:40 Plt Clumps, EDTA Not Reportable 08/24/18 20:40 Not Reportable 08/24/18 20:40 Not Reportable 08/24/18 20:40 Not Reportable 08/24/18 20:40 Plt Morphology Comment Not Reportable 08/24/18 20:40 RBC Morphology Not Reportable 08/24/18 20:40 Dimorphic RBCs Not Reportable 08/24/18 20:40 Not Reportable 08/24/18 20:40 Not Reportable 08/24/18 20:40 Not Reportable 08/24/18 20:40 Not Reportable 08/24/18 20:40 Not Reportable 08/24/18 20:40 Not Reportable 08/24/18 20:40 Not Reportable 08/24/18 20:40 Not Reportable 08/24/18 20:40 Not Reportable 08/24/18 20:40 Not Reportable 08/24/18 20:40 Not Reportable 08/24/18 20:40 Few 08/24/18 20:40 Not Reportable 08/24/18 20:40 Not Reportable 08/24/18 20:40 Not Reportable 08/24/18 20:40 Not Reportable 08/24/18 20:40 Not Reportable 08/24/18 20:40 Not Reportable 08/24/18 20:40 Not Reportable 08/24/18 20:40 Acanthocytes (Spur) Not Reportable 08/24/18 20:40 Rouleaux Not Reportable 08/24/18 20:40 Not Reportable 08/24/18 20:40 Not Reportable 08/24/18 20:40 Not Reportable 08/24/18 20:40 Not Reportable 08/24/18 20:40 Hem Pathologist Commnt No 08/24/18 20:40 PT 14.8 Sec. (12.2-14.9) 08/24/18 21:10 INR 1.19 (0.87-1.13) H 08/24/18 21:10 Sodium 135 mmol/L (137-145) L 08/24/18 20:40 Potassium 4.3 mmol/L (3.6-5.0) 08/24/18 20:40 Chloride 93.0 mmol/L (98-107) L 08/24/18 20:40 Carbon Dioxide 31 mmol/L (22-30) H 08/24/18 20:40 15 mmol/L 08/24/18 20:40 BUN 12 mg/dL (9-20) 08/24/18 20:40 0.7 mg/dL (0.8-1.5) L 08/24/18 20:40 Estimated GFR > 60 ml/min 08/24/18 20:40 17 % 08/24/18 20:40 Glucose 86 mg/dL (75-100) 08/24/18 20:40 Calcium 9.3 mg/dL (8.4-10.2) 08/24/18 20:40 Magnesium 2.20 mg/dL (1.7-2.3) 08/24/18 21:10 103 units/L (55-170) 08/24/18 21:10 Assessment and Plan Assessment and plan: 67-year-old man with a history of COPD, no hypertension emergency room with complaints of shortness of breath consistent with COPD exacerbation. Physical e xam significant for wheezing, good with an estimated above, patient seen and examined, discussed with nurse practitioner
[2018-08-24] MEDS: DUONEB *Not for PRN Use IH SCH (22:50)
[2018-08-24] MEDS: SODIUM CHLORIDE FLUSH SYRINGE 10 ML IV SCH (23:11)
[2018-08-24] MEDS ORDERED: VIBRAMYCIN ONE (23:16)
[2018-08-24] MEDS: SOLU-Medrol IV SCH (23:58)
[2018-08-25] MEDS: DUONEB *Not for PRN Use IH SCH ×4 (02:48→20:09)
[2018-08-25] MEDS: SOLU-Medrol IV SCH ×4 (05:06→23:09)
[2018-08-25] MEDS ORDERED: NON-FORMULARY (Albuterol Sulfate [Proair Respiclick] 90 MCG) IH PRN (06:54)
[2018-08-25] MEDS ORDERED: TYLENOL PO PRN (06:54)
[2018-08-25] MEDS ORDERED: PROVENTIL IH PRN (07:21)
[2018-08-25] MEDS ORDERED: NON-FORMULARY (Ipratropium Bromide [Atrovent Hfa] 12.9 GM) IH SCH (10:00)
[2018-08-25] MEDS: SODIUM CHLORIDE FLUSH SYRINGE 10 ML IV SCH ×2 (11:35→23:09)
[2018-08-25] MEDS ORDERED: PNEUMOVAX 23 IM ONE (12:00)
--- NOTE | 2018-08-25 15:47 | Progress Note ---
Assessment and Plan /COPD/emphysema with acute exacerbation Continue nebulizer treatmemt PRN for SOB Pulmocort daily O2 to keep sat > 92% Solumedrol 80mg Q6hr Cough supressent with mucinex /Acute hypoxic respiratory failure -Due to COPD exacerbation - Continue to treat underlying cause, supplemental O2 / HTN (BP stable), monitor BP every shift / H/o tobbaco used disorder - Counseled for cessation /The Thrombocytopenia - Monitor CBC Brief History: Patient is a 67-year-old male with PMHx of COPD (home O2 dependent), hyper tension, tobacco use disorder who presents to the ER with complaints of productive cough, wheezing, shortness of breath 2 days. Radiological data: Chest x-ray: Findings consistent with COPD Hospitalist Physical exam: GENERAL: well-developed elderly male lying on bed appeared to be in no discomfort. HEENT: Normocephalic. Atraumatic. No conjunctival congestion or icterus. Patient has moist mucous membranes. NECK: Supple. Trachea midline. CHEST/LUNGS: Diminished breath sound auscultated bilaterally, breathing nonlabored. No wheezes crackles or rhonchi. HEART/CARDIOVASCULAR: Regular in rate and rhythm. S1 and S2 positive. ABDOMEN: Abdomen is soft, nontender. Patient has normal bowel sounds. SKIN: There is no rash. Warm and dry. NEURO: No focal motor deficit. Follows command. MUSCULOSKELETAL: No joint effusion or tenderness. EXTRIMITY: No edema, no cyanosis or clubbing. PSYCH: Cooperative. Subjective Date of service: 08/25/18 Interval history: Patient seen and examined. Medical records and medication list reviewed. No acute event overnight noted by the RN. Patient denies any chest pain or difficulty breathing. Patient is tolerating diet. Discussed plan of care at bedside with patient. Objective - Constitutional Vitals: Vital Signs - 12hr 08/25/18 08/25/18 08/25/18 04:21 07:52 07:53 Temperature 97.8 F 98.2 F Pulse Rate 88 92 H Pulse Rate [ From Monitor] Pulse Rate [ 100 H Posterior Bilateral Throughout] Respiratory 18 18 Rate Respiratory 20 Rate [Posterior Bilateral Throughout] Blood Pressure 105/65 114/90 O2 Sat by Pulse 96 98 Oximetry 08/25/18 08/25/18 08/25/18 08:01 08:02 10:41 Temperature Pulse Rate Pulse Rate [ 92 H From Monitor] Pulse Rate [ 98 H Posterior Bilateral Throughout] Respiratory 18 Rate Respiratory 20 Rate [Posterior Bilateral Throughout] Blood Pressure O2 Sat by Pulse 96 98 Oximetry 08/25/18 08/25/18 11:46 13:31 Temperature 97.0 F L Pulse Rate 91 H Pulse Rate [ From Monitor] Pulse Rate [ 101 H Posterior Bilateral Throughout] Respiratory 18 Rate Respiratory 18 Rate [Posterior Bilateral Throughout] Blood Pressure 124/82 O2 Sat by Pulse 97 Oximetry - Labs CBC & Chem 7: 08/24/18 20:40 08/24/18 20:40 Labs: Abnormal lab results 08/24/18 08/24/18 08/24/18 Range/Units 20:40 20:40 21:10 WBC 3.2 L (4.5-11.0) K/mm3 MCV 95 H (84-94) fl RDW 12.2 L (13.2-15.2) % Plt Count 108 L (140-440) K/mm3 Seg Neuts % (Manual) 34.0 L (40.0-70.0) % Lymphocytes % (Manual) 52.0 H (13.4-35.0) % Monocytes % (Manual) 13.0 H (0.0-7.3) % Seg Neutrophils # Man 1.1 L (1.8-7.7) K/mm3 INR 1.19 H (0.87-1.13) Sodium 135 L (137-145) mmol/L Chloride 93.0 L (98-107) mmol/L Carbon Dioxide 31 H (22-30) mmol/L Creatinine 0.7 L (0.8-1.5) mg/dL
[2018-08-25] MEDS: IBUPROFEN PO PRN ×2 (17:49→23:09)
[2018-08-26] MEDS: DUONEB *Not for PRN Use IH SCH ×6 (01:59→19:34)
[2018-08-26] MEDS: SOLU-Medrol IV SCH ×3 (05:25→20:07)
[2018-08-26] MEDS: SODIUM CHLORIDE FLUSH SYRINGE 10 ML IV SCH ×2 (09:15→21:36)
--- NOTE | 2018-08-26 15:32 | Progress Note ---
Assessment and Plan /COPD/emphysema with acute exacerbation Continue nebulizer treatmemt , empiric steroid, place on abx Pulmocort daily O2 to keep sat > 92% Cough supressent with mucinex consult pulmonary /Acute hypoxic respiratory failure -Due to COPD exacerbation - Continue to treat underlying cause, supplemental O2 / HTN (BP stable), monitor BP every shift / H/o tobbaco use disorder - Counseled for cessation /The Thrombocytopenia - Monitor CBC Disposition: when clinically stable in 1-2 days Brief History: Patient is a 67-year-old male with PMHx of COPD (home O2 dependent), hypertension, tobacco use disorder who presents to the ER with complaints of productive cough, wheezing, shortness of breath 2 days. Radiological data: Chest x-ray: Findings consistent with COPD Hospitalist Physical exam: GENERAL: well-developed elderly male lying on bed appeared to be in no discomfort. HEENT: Normocephalic. Atraumatic. No conjunctival congestion or icterus. Patie nt has moist mucous membranes. NECK: Supple. Trachea midline. CHEST/LUNGS: Diminished breath sound auscultated bilaterally, breathing nonlabored. No wheezes crackles or rhonchi. HEART/CARDIOVASCULAR: Regular in rate and rhythm. S1 and S2 positive. ABDOMEN: Abdomen is soft, nontender. Patient has normal bowel sounds. SKIN: There is no rash. Warm and dry. NEURO: No focal motor deficit. Follows command. MUSCULOSKELETAL: No joint effusion or tenderness. EXTRIMITY: No edema, no cyanosis or clubbing. PSYCH: Cooperative. Subjective Date of service: 08/26/18 Interval history: Patient seen and examined. Medical records and medication list reviewed. No acute event overnight noted by the RN. Patient c/o difficulty breathing. Patient is tolerating diet. Discussed plan of care at bedside with patient. Objective - Constitutional Vitals: Vital Signs - 12hr 08/26/18 08/26/18 08/26/18 03:52 08:11 09:34 Temperature 98.1 F 98.7 F Pulse Rate 110 H 54 L Pulse Rate [ 97 H Posterior Bilateral Throughout] Respiratory 20 18 Rate Respiratory 16 Rate [Posterior Bilateral Throughout] Blood Pressure 124/80 139/86 O2 Sat by Pulse 98 95 96 Oximetry 08/26/18 09:53 Temperature Pulse Rate Pulse Rate [ 109 H Posterior Bilateral Throughout] Respiratory Rate Respiratory 24 Rate [Posterior Bilateral Throughout] Blood Pressure O2 Sat by Pulse Oximetry - Labs CBC & Chem 7: 08/24/18 20:40 08/24/18 20:40
[2018-08-26] MEDS: LEVAQUIN 750MG/150ML 750 MG/150 ML BAG IV SCH (17:53)
--- NOTE | 2018-08-26 19:25 | Consultation ---
History of Present Illness Consult date: 08/26/18 Reason for consult: dyspnea, cough, COPD History of present illness: PULMONARY AND CRITICAL CARE CO NSULTATION DR. Saint Tereza POLK thank you for asking us to participate in the care of this patient. Patient is a 67-year-old male with PMHx of COPD (home O2 dependent), hypertension, tobacco use disorder who presents to the ER with complaints of productive cough, wheezing, shortness of breath 2 days. Patient states that he had been having trouble breathing at home, he took his nebulizer treatment without relief of his symptoms, patient also reports that the symptoms are associated with shortness of breath, cough. Patient states that he had been coughing for 2 days with whitish sputum production, he complains of increase shortness of breath with activities, chest congestion that has been going on for a week. Patient also reports problem swallowing solid food that is concerning to him, denies sore throat, denies hemoptysis, denies chest pain, denies seizure, denies chills. Patient has history of smoking 1 pack x 40years. Stopped smoking 6 months ago. Denies alcohol or drug abuse. Patient is [place]. 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 Denies allergies to the medications. Patient not . Children 1. Patient still having some shortness of breath at rest.Patient is on 2 litres O2. O2 saturation 96%. Chest ray findings consistent with COPD. Past History Past Medical History: hypertension Past Surgical History: No surgical history Social history: smoking (since age 14, quit 6 months ago) Family history: no significant family history Medications and Allergies Allergies Allergy/AdvReac Type Severity Reaction Status Date / Time No Known Allergies Allergy Unverified 08/25/17 06:06 Home Medications Medication Instructions Recorded Confirmed Last Taken Type Acetaminophen [Tylenol Arthritis] 650 mg PO Q6HR PRN #30 tablet.er 08/25/17 Unknown Rx Albuterol Sulfate [Proair 90 mcg IH Q4HR PRN #2 aer.[email or web address] 08/25/17 08/25/18 2 Days Ago Rx Respiclick] ~08/23/18 Ibuprofen [Motrin] 600 mg PO Q8H PRN #30 tablet 08/25/17 08/25/18 Unknown Rx Ipratropium [place] [Atrovent Hfa] 12.9 gm IH Q4HR #2 hfa.aer.[email or web address] 08/25/17 08/25/18 2 Days Ago Rx ~08/23/18 Active Meds: Active Medications Acetaminophen (Tylenol) 650 mg PO Q6H PRN PRN Reason: Pain Albuterol (Proventil) 2.5 mg IH Q4HRT PRN PRN Reason: Shortness Of Breath Albuterol/Ipratropium (Duoneb *Not For Prn Use*) 1 ampul IH Q4HRT [facility] Last Admin: 08/26/18 17:19 Dose: Not Given Documented by: Enoxaparin Sodium (Lovenox) 40 mg SUB-Q QDAY@2200 PAIGE Levofloxacin/Dextrose (Levaquin 750mg/150ml) 750 mg in 150 mls @ 100 mls/hr IV Q24H [facility]; Protocol Last Admin: 08/26/18 17:53 Dose: 100 mls/hr Documented by: Ibuprofen (Ibuprofen) 600 mg PO Q8H PRN PRN Reason: Pain Last Admin: 08/25/18 23:09 Dose: 600 mg Documented by: Methylprednisolone Sodium Succinate (Solu-Medrol) 40 mg IV Q6H PAIGE Ondansetron HCl (Zofran) 4 mg IV Q8H PRN PRN Reason: Nausea And Vomiting Sodium Chloride (Sodium Chloride Flush Syringe 10 Ml) 10 ml IV BID [facility] Last Admin: 08/26/18 09:15 Dose: 10 ml Documented by: Sodium Chloride (Sodium Chloride Flush Syringe 10 Ml) 10 ml IV PRN PRN PRN Reason: LINE FLUSH Review of Systems All systems: negative Physical Examination Vital signs: Vital Signs Pulse 95 H 08/24/18 20:22 General appearance: alert, appears uncomfortable Eyes: non-icteric ENT: oropharynx moist Neck: supple, no JVD Ascultation: Bilateral: diminished breath sounds, other (Prolonged expiratory phase.) Cardiovascular: regular rate and rhythm Gastrointestinal: normoactive bowel sounds, soft, non-tender Integumentary: normal Extremities: no cyanosis, no edema Musculoskeletal: no deformities Gait: poor gait non-focal exam, pupils equal and round anxious Results - Laboratory Findings CBC and BMP: 08/24/18 20:40 08/24/18 20:40 PT/INR, D-dimer PT 14.8 Sec. (12.2-14.9) 08/24/18 21:10 INR 1.19 (0.87-1.13) H 08/24/18 21:10 Abnormal lab findings: Abnormal Labs 08/24/18 08/24/18 08/24/18 20:40 20:40 21:10 WBC 3.2 L MCV 95 H RDW 12.2 L Plt Count 108 L Seg Neuts % (Manual) 34.0 L Lymphocytes % (Manual) 52.0 H Monocytes % (Manual) 13.0 H Seg Neutrophils # Man 1.1 L INR 1.19 H Sodium 135 L Chloride 93.0 L Carbon Dioxide 31 H Creatinine 0.7 L - Diagnostic Findings Chest x-ray: report reviewed (Reported changes of COPD), image reviewed Assessment and Plan Patient is a 67-year-old male with PMHx of COPD (home O2 dependent), hypertension, tobacco use disorder who presents to the ER with complaints of productive cough, wheezing, shortness of breath 2 days. Patient states that he had been having trouble breathing at home, he took his nebulizer treatment without relief of his symptoms, patient also reports that the symptoms are associated with shortness of breath, cough. Patient states that he had been coughing for 2 days with whitish sputum production, he complains of increase shortness of breath with activities, chest congestion that has been going on for a week. Patient also reports problem swallowing solid food that is concerning to him, denies sore throat, denies hemoptysis, denies chest pain, denies seizure, denies chills. Patient has history of smoking 1 pack x 40years. Stopped smoking 6 months ago. Denies alcohol or drug abuse. Patient is [place]. 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 Denies allergies to the medications. Patient not . Children 1. Patient still having some shortness of breath at rest.Patient is on 2 litres O2. O2 saturation 96%. Chest ray findings consistent with COPD. - Patient Problems (1) COPD exacerbation Current Visit: Yes Status: Acute Plan to address problem: O2 2 litres via nasal canula. Albuterol/Atrovent aerosol treatments q 6 hours. Continue I/V solumedrol. Continue S/C Lovenox. Continue Levaquin. Recommend GI prophylaxis. ABGs on O2. (2) Acute bronchitis Current Visit: Yes Status: Acute Plan to address problem: Patient is on Levaquin.
[2018-08-26] MEDS: LOVENOX SUB-Q SCH (21:35)
[2018-08-26] MEDS: IBUPROFEN PO PRN (21:35)
[2018-08-26] MEDS: MUCINEX ER PO SCH (23:06)
[2018-08-27] MEDS: SOLU-Medrol IV SCH ×4 (01:19→20:28)
[2018-08-27] MEDS: DUONEB *Not for PRN Use IH SCH ×4 (01:36→19:21)
[2018-08-27 05:08] LABS: Basophils % (Auto) 0.1 % (0.0-1.8); Hematocrit 45.7 % (35.5-45.6); Hemoglobin 14.8 gm/dl (11.8-15.2); Lymphocytes # (Auto) 0.4 K/mm3 (1.2-5.4); Mean Corpuscular HGB Conc 32 % (32-34); Mean Corpuscular Volume 98 fl (84-94); Monocytes # (Auto) 0.3 K/mm3 (0.0-0.8); Monocytes % (Auto) 4.2 % (0.0-7.3); Platelet Count 126 K/mm3 (140-440); Red Blood Count 4.68 M/mm3 (3.65-5.03); Red Cell Distribution Width 13.3 % (13.2-15.2)
[2018-08-27 05:26] LABS: BUN/Creatinine Ratio 31; Blood Urea Nitrogen 22 mg/dL (9-20); Calcium 9.8 mg/dL (8.4-10.2); Hemolysis Index 8
[2018-08-27] MEDS: SODIUM CHLORIDE FLUSH SYRINGE 10 ML IV SCH ×2 (09:36→22:22)
[2018-08-27] MEDS: MUCINEX ER PO SCH ×2 (09:36→22:22)
--- NOTE | 2018-08-27 11:59 | Progress Note ---
Assessment and Plan Assessment and plan: --COPD with acute exacerbation: Oxygen titrate O2 sats to more than 90%, nebulizers Tapering dose of IV steroids, IV antibiotics, cough medicine Inhalation steroids, admitted following Evaluation for home oxygen at discharge --Acute bronchitis; bronchodilators, oxygen Antibiotics and supportive care --Acute hypoxic respiratory failure Secondary to COPD exacerbation treat the underlying cause, supplemental O2 --HTN ; well controlled. Continue current antihypertensives and when necessary medications --Ongoing tobacco use ; smoking cessation nicotine patch as needed --The Thrombocytopenia; monitor levels --Ambulate as tolerated Possible discharge tomorrow if stable Plan of care is reviewed with the patient and his nurse History Interval history: Patient seen and examined medical records reviewed Patient feels slightly better , denies chest pain Still complains of some congestion and cough Vital signs noted Hospitalist Physical - Constitutional Vitals: Temp Pulse Resp BP Pulse Ox 98.2 F 75 16 109/82 97 08/27/18 09:30 08/27/18 09:30 08/27/18 09:30 08/27/18 09:30 08/27/18 09:30 General appearance: Present: no acute distress, mild distress, cachectic - EENT Eyes: Present: PERRL, EOM intact - Neck Neck: Present: supple, normal ROM - Respiratory Respiratory effort: normal Respiratory: bilateral: diminished, rhonchi, negative: rales, wheezing - Cardiovascular Rhythm: regular Heart Sounds: Present: S1 & S2 - Extremities Extremities: no ischemia, No edema - Abdominal General gastrointestinal: soft, non-tender, non-distended, normal bowel sounds - Integumentary Integumentary: Present: clear, warm - Psychiatric Psychiatric: appropriate mood/affect, cooperative - Neurologic Neurologic: CNII-XII intact, moves all extremities Results - Labs CBC & Chem 7: 08/27/18 03:58 08/27/18 03:58 Labs: Laboratory Last Values WBC 6.5 K/mm3 (4.5-11.0) 08/27/18 03:58 RBC 4.68 M/mm3 (3.65-5.03) 08/27/18 03:58 Hgb 14.8 gm/dl (11.8-15.2) 08/27/18 03:58 Hct 45.7 % (35.5-45.6) H 08/27/18 03:58 MCV 98 fl (84-94) H 08/27/18 03:58 MCH 32 pg (28-32) 08/27/18 03:58 MCHC 32 % (32-34) 08/27/18 03:58 RDW 13.3 % (13.2-15.2) 08/27/18 03:58 Plt Count 126 K/mm3 (140-440) L 08/27/18 03:58 Lymph % (Auto) 7.0 % (13.4-35.0) L 08/27/18 03:58 [place] % (Auto) 4.2 % (0.0-7.3) 08/27/18 03:58 Eos % (Auto) 0.0 % (0.0-4.3) 08/27/18 03:58 Baso % (Auto) 0.1 % (0.0-1.8) 08/27/18 03:58 Lymph # 0.4 K/mm3 (1.2-5.4) L 08/27/18 03:58 [place] # 0.3 K/mm3 (0.0-0.8) 08/27/18 03:58 Eos # 0.0 K/mm3 (0.0-0.4) 08/27/18 03:58 Baso # 0.0 K/mm3 (0.0-0.1) 08/27/18 03:58 Add Manual Diff Complete 08/24/18 20:40 Total Counted 100 08/24/18 20:40 Seg Neutrophils % 88.7 % (40.0-70.0) H 08/27/18 03:58 Seg Neuts % (Manual) 34.0 % (40.0-70.0) L 08/24/18 20:40 0 % 08/24/18 20:40 52.0 % (13.4-35.0) H 08/24/18 20:40 Reactive Lymphs % (Man) 0 % 08/24/18 20:40 13.0 % (0.0-7.3) H 08/24/18 20:40 1.0 % (0.0-4.3) 08/24/18 20:40 0 % (0.0-1.8) 08/24/18 20:40 0 % 08/24/18 20:40 0 % 08/24/18 20:40 0 % 08/24/18 20:40 0 % 08/24/18 20:40 Nucleated RBC % Not Reportable 08/24/18 20:40 Seg Neutrophils # 5.7 K/mm3 (1.8-7.7) 08/27/18 03:58 Seg Neutrophils # Man 1.1 K/mm3 (1.8-7.7) L 08/24/18 20:40 Band Neutrophils # 0.0 K/mm3 08/24/18 20:40 1.7 K/mm3 (1.2-5.4) 08/24/18 20:40 Abs React Lymphs (Man) 0.0 K/mm3 08/24/18 20:40 0.4 K/mm3 (0.0-0.8) 08/24/18 20:40 0.0 K/mm3 (0.0-0.4) 08/24/18 20:40 0.0 K/mm3 (0.0-0.1) 08/24/18 20:40 0.0 K/mm3 08/24/18 20:40 0.0 K/mm3 08/24/18 20:40 0.0 K/mm3 08/24/18 20:40 Blast Cells # 0.0 K/mm3 08/24/18 20:40 WBC Morphology Not Reportable 08/24/18 20:40 Hypersegmented Neuts Not Reportable 08/24/18 20:40 Hyposegmented Neuts Not Reportable 08/24/18 20:40 Hypogranular Neuts Not Reportable 08/24/18 20:40 Not Reportable 08/24/18 20:40 Not Reportable 08/24/18 20:40 Not Reportable 08/24/18 20:40 Not Reportable 08/24/18 20:40 Not Reportable 08/24/18 20:40 Not Reportable 08/24/18 20:40 Appears decreased 08/24/18 20:40 Not Reportable 08/24/18 20:40 Plt Clumps, EDTA Not Reportable 08/24/18 20:40 Not Reportable 08/24/18 20:40 Not Reportable 08/24/18 20:40 Not Reportable 08/24/18 20:40 Plt Morphology Comment Not Reportable 08/24/18 20:40 RBC Morphology Not Reportable 08/24/18 20:40 Dimorphic RBCs Not Reportable 08/24/18 20:40 Not Reportable 08/24/18 20:40 Not Reportable 08/24/18 20:40 Not Reportable 08/24/18 20:40 Not Reportable 08/24/18 20:40 Not Reportable 08/24/18 20:40 Not Reportable 08/24/18 20:40 Not Reportable 08/24/18 20:40 Not Reportable 08/24/18 20:40 Not Reportable 08/24/18 20:40 Not Reportable 08/24/18 20:40 Not Reportable 08/24/18 20:40 Few 08/24/18 20:40 Not Reportable 08/24/18 20:40 Not Reportable 08/24/18 20:40 Not Reportable 08/24/18 20:40 Not Reportable 08/24/18 20:40 Not Reportable 08/24/18 20:40 Not Reportable 08/24/18 20:40 Not Reportable 08/24/18 20:40 Acanthocytes (Spur) Not Reportable 08/24/18 20:40 Rouleaux Not Reportable 08/24/18 20:40 Not Reportable 08/24/18 20:40 Not Reportable 08/24/18 20:40 Not Reportable 08/24/18 20:40 Not Reportable 08/24/18 20:40 Hem Pathologist Commnt No 08/24/18 20:40 PT 14.8 Sec. (12.2-14.9) 08/24/18 21:10 INR 1.19 (0.87-1.13) H 08/24/18 21:10 Sodium 139 mmol/L (137-145) 08/27/18 03:58 Potassium 4.8 mmol/L (3.6-5.0) 08/27/18 03:58 Chloride 95.7 mmol/L (98-107) L 08/27/18 03:58 Carbon Dioxide 33 mmol/L (22-30) H 08/27/18 03:58 15 mmol/L 08/27/18 03:58 BUN 22 mg/dL (9-20) H 08/27/18 03:58 0.7 mg/dL (0.8-1.5) L 08/27/18 03:58 Estimated GFR > 60 ml/min 08/27/18 03:58 31 % 08/27/18 03:58 Glucose 123 mg/dL (75-100) H 08/27/18 03:58 Calcium 9.8 mg/dL (8.4-10.2) 08/27/18 03:58 Magnesium 2.20 mg/dL (1.7-2.3) 08/24/18 21:10 103 units/L (55-170) 08/24/18 21:10 Active Medications - Current Medications Current Medications: Generic Name Dose Route Start Last Admin Trade Name Freq PRN Reason Stop Dose Admin Acetaminophen 650 mg 08/25/18 06:54 Tylenol PO Q6H PRN Pain Albuterol 2.5 mg 08/25/18 07:21 Proventil IH Q4HRT PRN Shortness Of Breath Albuterol/Ipratropium 1 ampul 08/27/18 08:00 08/27/18 08:59 Duoneb *Not For Prn Use* IH Not Given TIDRT [facility] Enoxaparin Sodium 40 mg 08/26/18 22:00 08/26/18 21:35 Lovenox SUB-Q 40 mg QDAY@2200 PAIGE Administration Guaifenesin 600 mg 08/26/18 22:40 08/27/18 09:36 Mucinex Er PO 600 mg BID PAIGE Administration Levofloxacin/Dextrose 750 mg in 150 mls @ 100 mls/hr 08/26/18 17:00 08/26/18 17:53 Levaquin 750mg/150ml IV 100 mls/hr Q24H PAIGE Administration Protocol Ibuprofen 600 mg 08/25/18 06:54 08/26/18 21:35 Ibuprofen PO 600 mg Q8H PRN Administration Pain Methylprednisolone Sodium Succinate 40 mg 08/26/18 20:00 08/27/18 09:38 Solu-Medrol IV 40 mg Q6H PAIGE Administration Ondansetron HCl 4 mg 08/24/18 22:33 Zofran IV Q8H PRN Nausea And Vomiting Sodium Chloride 10 ml 08/24/18 23:00 08/27/18 09:36 Sodium Chloride Flush Syringe 10 Ml IV 10 ml BID PAIGE Administration Sodium Chloride 10 ml 08/24/18 22:33 Sodium Chloride Flush Syringe 10 Ml IV PRN PRN LINE FLUSH Nutrition/Malnutrition Assess - Dietary Evaluation Nutrition/Malnutrition Findings: Nutrition Notes Start: 08/26/18 17:35 Freq: Status: Active Protocol: Document 08/26/18 17:35 RM (Rec: 08/26/18 17:44 RM [id number]) Nutrition Notes Need for Assessment generated from: Order,MST Initial or Follow up Assessment Current Diagnosis COPD,Hypertension Current Diet Regular w/Ensure Enlive Vanilla BID Labs/Tests Reviewed Pertinent Medications Solu-Medrol Height 5 ft 3 in Weight 47.6 kg Usual Body Weight 54.55 kg [place] Body Weight (kg) 56.36 BMI 18.6 Weight change and time frame 12.7% wt loss X 6 months Subjective/Other Information Consulted for malnutrition and ONS diet. 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 Stated that he eats all of his meals here and that he drinks the Ensure Enlive. Noted 2 unopened Ensure Enlive at bedside. Pt stated that he has not gotten around to drinking them but will today. Stated UBW was 120 lbs 6 months ago. No temporal or orbital wasting . Percent of energy/protein needs met: 100%/100% Burn Absent Trauma Absent #2 Nutrition Diagnosis Underweight Comments: for older adult Etiology COPD As Evidenced by Signs and Symptoms BMI 18.6 #1 Nutrition Diagnosis Unintended weight loss Etiology COPD As Evidenced by Signs and Symptoms 12.7% wt loss X 6 months Is patient on ventilator? No Is Patient Ambulatory and/or Out of Bed Yes REE-([facility]-ambulatory/OOB) [ 1496.469 [id number]] Kcal/Kg value to use for calculation 38 Approximate Energy Requirements Using 1809 kcal/Kg Calculation Used for Recommendations Kcal/kg Additional Notes Protein Needs: 57-71g (1.2-1. 5g/kg) Fluid Needs: 1 ml/kcal Nutrition Intervention Change Diet Order: Continue current Add Supplement/Snack (indicate name/kcal Ensure Enlive Vanilla BID /protein ) Provides kCal: 700 Provides Protein (gm) 40 Goal #1 Continue to meet least 75% of calorie and protein needs via PO and ONS intakes Goal #2 Wt gain/maintenance Anticipated Discharge Needs: Regular diet Follow-Up By: 09/02/18 Additional Comments Follow for PO and ONS intakes
--- NOTE | 2018-08-27 16:48 | Progress Note ---
Assessment and Plan Patient weak. Patient still complaining shortness of breath and cough. Patient is on 2L O2. O2 Sat 97%. ABG on room air 08/27/18 pH 7.37 PCO2 65.6 PO2 50 BiCO3 37.9 O2 Sat 82 - Patient Problems (1) COPD exacerbation Current Visit: Yes Status: Acute Plan to address problem: O2 2 litres via nasal canula. Albuterol/Atrovent aerosol treatments q 6 hours. Continue I/V solumedrol. Continue S/C Lovenox. Continue Levaquin. Recommend GI prophylaxis. (2) Acute bronchitis Current Visit: Yes Status: Acute Plan to address problem: Patient is on Levaquin. Subjective Date of service: 08/27/18 Interval history: Patient weak. Patient still complaining shortness of breath and cough. Patient is on 2L O2. O2 Sat 97%. ABG on room air POC ABG pH 7.370 (7.35-7.45) 08/27/18 11:26 POC ABG pCO2 65.6 (35-45) H 08/27/18 11:26 POC ABG pO2 50 (80-105) L 08/27/18 11:26 POC ABG HCO3 37.9 (22-26 mml/L) 08/27/18 11:26 POC ABG Total CO2 40 (23-27mmol/L) 08/27/18 11:26 POC ABG O2 Sat 82 08/27/18 11:26 Objective Vital Signs - 12hr 08/27/18 08/27/18 08:59 09:30 Temperature 98.2 F Pulse Rate 75 Respiratory 16 Rate Blood Pressure 109/82 O2 Sat by Pulse 96 97 Oximetry Constitutional: alert, appears uncomfortable Eyes: non-icteric ENT: oropharynx moist Neck: supple, no JVD Ascultation: Bilateral: diminished breath sounds, other (Prolonged expiratory phase.) Cardiovascular: regular rate and rhythm Gastrointestinal: normoactive bowel sounds, soft, non-tender Integumentary: normal Extremities: no cyanosis, no edema Neurologic: non-focal exam, pupils equal and round Psychiatric: anxious CBC and BMP: 08/27/18 03:58 08/27/18 03:58 ABG, PT/INR, D-dimer: ABG POC ABG pH 7.370 (7.35-7.45) 08/27/18 11:26 POC ABG pCO2 65.6 (35-45) H 08/27/18 11:26 POC ABG pO2 50 (80-105) L 08/27/18 11:26 POC ABG HCO3 37.9 (22-26 mml/L) 08/27/18 11:26 POC ABG Total CO2 40 (23-27mmol/L) 08/27/18 11:26 POC ABG O2 Sat 82 08/27/18 11:26 PT/INR, D-dimer PT 14.8 Sec. (12.2-14.9) 08/24/18 21:10 INR 1.19 (0.87-1.13) H 08/24/18 21:10 Abnormal lab findings: Abnormal Labs 08/24/18 08/24/18 08/24/18 20:40 20:40 21:10 WBC 3.2 L Hct MCV 95 H RDW 12.2 L Plt Count 108 L Lymph % (Auto) Lymph # Seg Neutrophils % Seg Neuts % (Manual) 34.0 L Lymphocytes % (Manual) 52.0 H Monocytes % (Manual) 13.0 H Seg Neutrophils # Man 1.1 L INR 1.19 H POC ABG pCO2 POC ABG pO2 Sodium 135 L Chloride 93.0 L Carbon Dioxide 31 H BUN Creatinine 0.7 L Glucose 08/27/18 08/27/18 08/27/18 03:58 03:58 11:26 WBC Hct 45.7 H MCV 98 H RDW Plt Count 126 L Lymph % (Auto) 7.0 L Lymph # 0.4 L Seg Neutrophils % 88.7 H Seg Neuts % (Manual) Lymphocytes % (Manual) Monocytes % (Manual) Seg Neutrophils # Man INR POC ABG pCO2 65.6 H POC ABG pO2 50 L Sodium Chloride 95.7 L Carbon Dioxide 33 H BUN 22 H Creatinine 0.7 L Glucose 123 H
[2018-08-27] MEDS: LEVAQUIN 750MG/150ML 750 MG/150 ML BAG IV SCH (16:58)
[2018-08-27] MEDS: SODIUM CHLORIDE FLUSH SYRINGE 10 ML IV PRN (16:58)
[2018-08-27] MEDS: LOVENOX SUB-Q SCH (22:22)
[2018-08-28] MEDS: SOLU-Medrol IV SCH ×4 (02:16→21:37)
[2018-08-28] MEDS: DUONEB *Not for PRN Use IH SCH ×3 (07:17→20:19)
[2018-08-28] MEDS: SODIUM CHLORIDE FLUSH SYRINGE 10 ML IV PRN ×3 (08:36→16:49)
[2018-08-28] MEDS: MUCINEX ER PO SCH ×2 (10:01→21:37)
[2018-08-28] MEDS: SODIUM CHLORIDE FLUSH SYRINGE 10 ML IV SCH ×2 (10:01→21:38)
--- NOTE | 2018-08-28 10:54 | Progress Note ---
Assessment and Plan Assessment and plan: --Acute bronchitis; bronchodilators, oxygen Antibiotics and supportive care, cough medicine --COPD with acute exacerbation: Oxygen titrate O2 sats to more than 90%, nebulizers Tapering dose of IV steroids, IV antibiotics, cough medicine Inhalation steroids, admitted following Evaluation for home oxygen at discharge --Acute hypoxic respiratory failure Secondary to COPD exacerbation Improvement of symptoms, continue current management --HTN ; well controlled. Continue current antihypertensives and when necessary medications --Ongoing tobacco use ; smoking cessation nicotine patch as needed --Thrombocytopenia; monitor levels --Ambulate as tolerated Possible discharge with home health versus SNF placement . Plan of care is reviewed with the patient and his nurse History Interval history: Patient seen while receiving physical therapy Complaints of generalized weakness Productive A, not in acute distress Cachectic, malnourished Vital signs noted Hospitalist Physical - Constitutional Vitals: Temp Pulse Resp BP Pulse Ox 97.9 F 51 L 18 115/79 96 08/28/18 07:41 08/28/18 07:41 08/28/18 07:41 08/28/18 07:41 08/28/18 07:41 General appearance: Present: no acute distress, mild distress, cachectic - EENT Eyes: Present: PERRL, EOM intact - Neck Neck: Present: supple, normal ROM - Respiratory Respiratory effort: normal Respiratory: bilateral: diminished, wheezing, negative: rales, rhonchi - Cardiovascular Rhythm: regular Heart Sounds: Present: S1 & S2 - Extremities Extremities: no ischemia, No edema - Abdominal General gastrointestinal: soft, non-tender, non-distended, normal bowel sounds - Integumentary Integumentary: Present: clear, warm - Psychiatric Psychiatric: appropriate mood/affect, cooperative - Neurologic Neurologic: CNII-XII intact, moves all extremities Results - Labs CBC & Chem 7: 08/27/18 03:58 08/27/18 03:58 Labs: Laboratory Last Values WBC 6.5 K/mm3 (4.5-11.0) 08/27/18 03:58 RBC 4.68 M/mm3 (3.65-5.03) 08/27/18 03:58 Hgb 14.8 gm/dl (11.8-15.2) 08/27/18 03:58 Hct 45.7 % (35.5-45.6) H 08/27/18 03:58 MCV 98 fl (84-94) H 08/27/18 03:58 MCH 32 pg (28-32) 08/27/18 03:58 MCHC 32 % (32-34) 08/27/18 03:58 RDW 13.3 % (13.2-15.2) 08/27/18 03:58 Plt Count 126 K/mm3 (140-440) L 08/27/18 03:58 Lymph % (Auto) 7.0 % (13.4-35.0) L 08/27/18 03:58 [place] % (Auto) 4.2 % (0.0-7.3) 08/27/18 03:58 Eos % (Auto) 0.0 % (0.0-4.3) 08/27/18 03:58 Baso % (Auto) 0.1 % (0.0-1.8) 08/27/18 03:58 Lymph # 0.4 K/mm3 (1.2-5.4) L 08/27/18 03:58 [place] # 0.3 K/mm3 (0.0-0.8) 08/27/18 03:58 Eos # 0.0 K/mm3 (0.0-0.4) 08/27/18 03:58 Baso # 0.0 K/mm3 (0.0-0.1) 08/27/18 03:58 Add Manual Diff Complete 08/24/18 20:40 Total Counted 100 08/24/18 20:40 Seg Neutrophils % 88.7 % (40.0-70.0) H 08/27/18 03:58 Seg Neuts % (Manual) 34.0 % (40.0-70.0) L 08/24/18 20:40 0 % 08/24/18 20:40 52.0 % (13.4-35.0) H 08/24/18 20:40 Reactive Lymphs % (Man) 0 % 08/24/18 20:40 13.0 % (0.0-7.3) H 08/24/18 20:40 1.0 % (0.0-4.3) 08/24/18 20:40 0 % (0.0-1.8) 08/24/18 20:40 0 % 08/24/18 20:40 0 % 08/24/18 20:40 0 % 08/24/18 20:40 0 % 08/24/18 20:40 Nucleated RBC % Not Reportable 08/24/18 20:40 Seg Neutrophils # 5.7 K/mm3 (1.8-7.7) 08/27/18 03:58 Seg Neutrophils # Man 1.1 K/mm3 (1.8-7.7) L 08/24/18 20:40 Band Neutrophils # 0.0 K/mm3 08/24/18 20:40 1.7 K/mm3 (1.2-5.4) 08/24/18 20:40 Abs React Lymphs (Man) 0.0 K/mm3 08/24/18 20:40 0.4 K/mm3 (0.0-0.8) 08/24/18 20:40 0.0 K/mm3 (0.0-0.4) 08/24/18 20:40 0.0 K/mm3 (0.0-0.1) 08/24/18 20:40 0.0 K/mm3 08/24/18 20:40 0.0 K/mm3 08/24/18 20:40 0.0 K/mm3 08/24/18 20:40 Blast Cells # 0.0 K/mm3 08/24/18 20:40 WBC Morphology Not Reportable 08/24/18 20:40 Hypersegmented Neuts Not Reportable 08/24/18 20:40 Hyposegmented Neuts Not Reportable 08/24/18 20:40 Hypogranular Neuts Not Reportable 08/24/18 20:40 Not Reportable 08/24/18 20:40 Not Reportable 08/24/18 20:40 Not Reportable 08/24/18 20:40 Not Reportable 08/24/18 20:40 Not Reportable 08/24/18 20:40 Not Reportable 08/24/18 20:40 Appears decreased 08/24/18 20:40 Not Reportable 08/24/18 20:40 Plt Clumps, EDTA Not Reportable 08/24/18 20:40 Not Reportable 08/24/18 20:40 Not Reportable 08/24/18 20:40 Not Reportable 08/24/18 20:40 Plt Morphology Comment Not Reportable 08/24/18 20:40 RBC Morphology Not Reportable 08/24/18 20:40 Dimorphic RBCs Not Reportable 08/24/18 20:40 Not Reportable 08/24/18 20:40 Not Reportable 08/24/18 20:40 Not Reportable 08/24/18 20:40 Not Reportable 08/24/18 20:40 Not Reportable 08/24/18 20:40 Not Reportable 08/24/18 20:40 Not Reportable 08/24/18 20:40 Not Reportable 08/24/18 20:40 Not Reportable 08/24/18 20:40 Not Reportable 08/24/18 20:40 Not Reportable 08/24/18 20:40 Few 08/24/18 20:40 Not Reportable 08/24/18 20:40 Not Reportable 08/24/18 20:40 Not Reportable 08/24/18 20:40 Not Reportable 08/24/18 20:40 Not Reportable 08/24/18 20:40 Not Reportable 08/24/18 20:40 Not Reportable 08/24/18 20:40 Acanthocytes (Spur) Not Reportable 08/24/18 20:40 Rouleaux Not Reportable 08/24/18 20:40 Not Reportable 08/24/18 20:40 Not Reportable 08/24/18 20:40 Not Reportable 08/24/18 20:40 Not Reportable 08/24/18 20:40 Hem Pathologist Commnt No 08/24/18 20:40 PT 14.8 Sec. (12.2-14.9) 08/24/18 21:10 INR 1.19 (0.87-1.13) H 08/24/18 21:10 POC ABG pH 7.370 (7.35-7.45) 08/27/18 11:26 POC ABG pCO2 65.6 (35-45) H 08/27/18 11:26 POC ABG pO2 50 (80-105) L 08/27/18 11:26 POC ABG HCO3 37.9 (22-26 mml/L) 08/27/18 11:26 POC ABG Total CO2 40 (23-27mmol/L) 08/27/18 11:26 POC ABG O2 Sat 82 08/27/18 11:26 POC ABG Base Excess 13 ((-2) - (+3)mmol/L) 08/27/18 11:26 21 % 08/27/18 11:26 Sodium 139 mmol/L (137-145) 08/27/18 03:58 Potassium 4.8 mmol/L (3.6-5.0) 08/27/18 03:58 Chloride 95.7 mmol/L (98-107) L 08/27/18 03:58 Carbon Dioxide 33 mmol/L (22-30) H 08/27/18 03:58 15 mmol/L 08/27/18 03:58 BUN 22 mg/dL (9-20) H 08/27/18 03:58 0.7 mg/dL (0.8-1.5) L 08/27/18 03:58 Estimated GFR > 60 ml/min 08/27/18 03:58 31 % 08/27/18 03:58 Glucose 123 mg/dL (75-100) H 08/27/18 03:58 Calcium 9.8 mg/dL (8.4-10.2) 08/27/18 03:58 Magnesium 2.20 mg/dL (1.7-2.3) 08/24/18 21:10 103 units/L (55-170) 08/24/18 21:10 Active Medications - Current Medications Current Medications: Generic Name Dose Route Start Last Admin Trade Name Freq PRN Reason Stop Dose Admin Acetaminophen 650 mg 08/25/18 06:54 Tylenol PO Q6H PRN Pain Albuterol 2.5 mg 08/25/18 07:21 Proventil IH Q4HRT PRN Shortness Of Breath Albuterol/Ipratropium 1 ampul 08/27/18 08:00 08/28/18 07:17 Duoneb *Not For Prn Use* IH 1 ampul TIDRT PAIGE Administration Enoxaparin Sodium 40 mg 08/26/18 22:00 08/27/18 22:22 Lovenox SUB-Q 40 mg QDAY@2200 PAIGE Administration Guaifenesin 600 mg 08/26/18 22:40 08/28/18 10:01 Mucinex Er PO 600 mg BID PAIGE Administration Levofloxacin/Dextrose 750 mg in 150 mls @ 100 mls/hr 08/26/18 17:00 08/27/18 16:58 Levaquin 750mg/150ml IV 100 mls/hr Q24H PAIGE Administration Protocol Ibuprofen 600 mg 08/25/18 06:54 08/26/18 21:35 Ibuprofen PO 600 mg Q8H PRN Administration Pain Methylprednisolone Sodium Succinate 40 mg 08/26/18 20:00 08/28/18 08:35 Solu-Medrol IV 40 mg Q6H PAIGE Administration Ondansetron HCl 4 mg 08/24/18 22:33 Zofran IV Q8H PRN Nausea And Vomiting Sodium Chloride 10 ml 08/24/18 23:00 08/28/18 10:01 Sodium Chloride Flush Syringe 10 Ml IV 10 ml BID PAIGE Administration Sodium Chloride 10 ml 08/24/18 22:33 08/28/18 08:36 Sodium Chloride Flush Syringe 10 Ml IV 10 ml PRN PRN Administration LINE FLUSH Nutrition/Malnutrition Assess - Dietary Evaluation Nutrition/Malnutrition Findings: Nutrition Notes Start: 08/26/18 17:35 Freq: Status: Active Protocol: Document 08/26/18 17:35 RM (Rec: 08/26/18 17:44 RM [id number]) Nutrition Notes Need for Assessment generated from: MD Order,MST Initial or Follow up Assessment Current Diagnosis COPD,Hypertension Current Diet Regular w/Ensure Enlive Vanilla BID Labs/Tests Reviewed Pertinent Medications Solu-Medrol Height 5 ft 3 in Weight 47.6 kg Usual Body Weight 54.55 kg [place] Body Weight (kg) 56.36 BMI 18.6 Weight change and time frame 12.7% wt loss X 6 months Subjective/Other Information Consulted for malnutrition and ONS diet. 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 Stated that he eats all of his meals here and that he drinks the Ensure Enlive. Noted 2 unopened Ensure Enlive at bedside. Pt stated that he has not gotten around to drinking them but will today. Stated UBW was 120 lbs 6 months ago. No temporal or orbital wasting . Percent of energy/protein needs met: 100%/100% Burn Absent Trauma Absent #2 Nutrition Diagnosis Underweight Comments: for older adult Etiology COPD As Evidenced by Signs and Symptoms BMI 18.6 #1 Nutrition Diagnosis Unintended weight loss Etiology COPD As Evidenced by Signs and Symptoms 12.7% wt loss X 6 months Is patient on ventilator? No Is Patient Ambulatory and/or Out of Bed Yes REE-([place] [facility]-ambulatory/OOB) [ 1496.469 NUTR.MSJOOB] Kcal/Kg value to use for calculation 38 Approximate Energy Requirements Using 1809 kcal/Kg Calculation Used for Recommendations Kcal/kg Additional Notes Protein Needs: 57-71g (1.2-1. 5g/kg) Fluid Needs: 1 ml/kcal Nutrition Intervention Change Diet Order: Continue current Add Supplement/Snack (indicate name/kcal Ensure Enlive Vanilla BID /protein ) Provides kCal: 700 Provides Protein (gm) 40 Goal #1 Continue to meet least 75% of calorie and protein needs via PO and ONS intakes Goal #2 Wt gain/maintenance Anticipated Discharge Needs: Regular diet Follow-Up By: 09/02/18 Additional Comments Follow for PO and ONS intakes
[2018-08-28] MEDS: LEVAQUIN 750MG/150ML 750 MG/150 ML BAG IV SCH (16:49)
--- NOTE | 2018-08-28 18:12 | Progress Note ---
Assessment and Plan Patient awake. Sitting up in joc[place]. Says breathing better. Patient is on 2L O2. O2 Sat 97%. ABG on room air POC ABG pH 7.370 (7.35-7.45) 08/27/18 11:26 POC ABG pCO2 65.6 (35-45) H 08/27/18 11:26 POC ABG pO2 50 (80-105) L 08/27/18 11:26 POC ABG HCO3 37.9 (22-26 mml/L) 08/27/18 11:26 POC ABG Total CO2 40 (23-27mmol/L) 08/27/18 11:26 POC ABG O2 Sat 82 08/27/18 11:26 Patient already has home O2 - Patient Problems (1) COPD exacerbation Current Visit: Yes Status: Acute Plan to address problem: O2 2 litres via nasal canula. Albuterol/Atrovent aerosol treatments q 6 hours. Continue I/V solumedrol. Continue S/C Lovenox. Continue Levaquin. Recommend GI prophylaxis. (2) Acute bronchitis Current Visit: Yes Status: Acute Plan to address problem: Patient is on Levaquin. Subjective Date of service: 08/28/18 Interval history: Patient awake. Sitting up in jocelyn. Says breathing better. Patient is on 2L O2. O2 Sat 97%. ABG on room air POC ABG pH 7.370 (7.35-7.45) 08/27/18 11:26 POC ABG pCO2 65.6 (35-45) H 08/27/18 11:26 POC ABG pO2 50 (80-105) L 08/27/18 11:26 POC ABG HCO3 37.9 (22-26 mml/L) 08/27/18 11:26 POC ABG Total CO2 40 (23-27mmol/L) 08/27/18 11:26 POC ABG O2 Sat 82 08/27/18 11:26 Patient already has home O2. Objective Vital Signs - 12hr 08/28/18 08/28/18 08/28/18 07:19 07:20 07:25 Temperature Pulse Rate Pulse Rate [ 90 92 H Anterior Bilateral Throughout] Pulse Rate [ From Monitor] Respiratory Rate Respiratory 18 18 Rate [Anterior Bilateral Throughout] Blood Pressure O2 Sat by Pulse 96 Oximetry 08/28/18 08/28/1819 07:41 10:00 13:15 Temperature 97.9 F Pulse Rate 51 L Pulse Rate [ 88 Anterior Bilateral Throughout] Pulse Rate [ 51 L From Monitor] Respiratory 18 18 Rate Respiratory 18 Rate [Anterior Bilateral Throughout] Blood Pressure 115/79 O2 Sat by Pulse 96 96 Oximetry 08/28/18 08/28/18 13:20 13:38 Temperature 98.2 F Pulse Rate 56 L Pulse Rate [ 85 Anterior Bilateral Throughout] Pulse Rate [ From Monitor] Respiratory 18 Rate Respiratory 18 Rate [Anterior Bilateral Throughout] Blood Pressure 120/76 O2 Sat by Pulse 97 Oximetry Constitutional: no acute distress, alert Eyes: non-icteric ENT: oropharynx moist Neck: supple, no JVD Ascultation: Bilateral: diminished breath sounds, other (Prolonged expiratory phase.) Cardiovascular: regular rate and rhythm Gastrointestinal: normoactive bowel sounds, soft, non-tender Integumentary: normal Extremities: no cyanosis, no edema Neurologic: non-focal exam, pupils equal and round Psychiatric: anxious CBC and BMP: 08/27/18 03:58 08/27/18 03:58 ABG, PT/INR, D-dimer: ABG POC ABG pH 7.370 (7.35-7.45) 08/27/18 11:26 POC ABG pCO2 65.6 (35-45) H 08/27/18 11:26 POC ABG pO2 50 (80-105) L 08/27/18 11:26 POC ABG HCO3 37.9 (22-26 mml/L) 08/27/18 11:26 POC ABG Total CO2 40 (23-27mmol/L) 08/27/18 11:26 POC ABG O2 Sat 82 08/27/18 11:26 PT/INR, D-dimer PT 14.8 Sec. (12.2-14.9) 08/24/18 21:10 INR 1.19 (0.87-1.13) H 08/24/18 21:10 Abnormal lab findings: Abnormal Labs 08/24/18 08/24/18 08/24/18 20:40 20:40 21:10 WBC 3.2 L Hct MCV 95 H RDW 12.2 L Plt Count 108 L Lymph % (Auto) Lymph # Seg Neutrophils % Seg Neuts % (Manual) 34.0 L Lymphocytes % (Manual) 52.0 H Monocytes % (Manual) 13.0 H Seg Neutrophils # Man 1.1 L INR 1.19 H POC ABG pCO2 POC ABG pO2 Sodium 135 L Chloride 93.0 L Carbon Dioxide 31 H BUN Creatinine 0.7 L Glucose 08/27/18 08/27/18 08/27/18 03:58 03:58 11:26 WBC Hct 45.7 H MCV 98 H RDW Plt Count 126 L Lymph % (Auto) 7.0 L Lymph # 0.4 L Seg Neutrophils % 88.7 H Seg Neuts % (Manual) Lymphocytes % (Manual) Monocytes % (Manual) Seg Neutrophils # Man INR POC ABG pCO2 65.6 H POC ABG pO2 50 L Sodium Chloride 95.7 L Carbon Dioxide 33 H BUN 22 H Creatinine 0.7 L Glucose 123 H
[2018-08-28] MEDS: LOVENOX SUB-Q SCH (21:37)
[2018-08-29] MEDS: SOLU-Medrol IV SCH ×3 (02:12→15:14)
--- NOTE | 2018-08-29 07:20 | Progress Note ---
Assessment and Plan Assessment and plan: --Acute bronchitis; bronchodilators, oxygen Antibiotics and supportive care, cough medicine --COPD with acute exacerbation: Oxygen titrate O2 sats to more than 90%, nebulizers Tapering dose of IV steroids, IV antibiotics, cough medicine Inhalation steroids, admitted following Evaluation for home oxygen at discharge --Acute hypoxic respiratory failure Secondary to COPD exacerbation Improvement of symptoms, continue current management --HTN ; well controlled. Continue current antihypertensives and when necessary medications --Ongoing tobacco use ; smoking cessation nicotine patch as needed --Thrombocytopenia; monitor levels --Ambulate as tolerated Awaiting SNF placement/pending insurance approval Hospitalist Physical - Constitutional Vitals: Temp Pulse Resp BP Pulse Ox 98.2 F 55 L 18 107/80 96 08/29/18 02:27 08/29/18 02:27 08/29/18 02:27 08/29/18 02:27 08/29/18 02:27 General appearance: Present: no acute distress, mild distress, cachectic Results - Labs CBC & Chem 7: 08/27/18 03:58 08/27/18 03:58 Labs: Laboratory Last Values WBC 6.5 K/mm3 (4.5-11.0) 08/27/18 03:58 RBC 4.68 M/mm3 (3.65-5.03) 08/27/18 03:58 Hgb 14.8 gm/dl (11.8-15.2) 08/27/18 03:58 Hct 45.7 % (35.5-45.6) H 08/27/18 03:58 MCV 98 fl (84-94) H 08/27/18 03:58 MCH 32 pg (28-32) 08/27/18 03:58 MCHC 32 % (32-34) 08/27/18 03:58 RDW 13.3 % (13.2-15.2) 08/27/18 03:58 Plt Count 126 K/mm3 (140-440) L 08/27/18 03:58 Lymph % (Auto) 7.0 % (13.4-35.0) L 08/27/18 03:58 [place] % (Auto) 4.2 % (0.0-7.3) 08/27/18 03:58 Eos % (Auto) 0.0 % (0.0-4.3) 08/27/18 03:58 Baso % (Auto) 0.1 % (0.0-1.8) 08/27/18 03:58 Lymph # 0.4 K/mm3 (1.2-5.4) L 08/27/18 03:58 [place] # 0.3 K/mm3 (0.0-0.8) 08/27/18 03:58 Eos # 0.0 K/mm3 (0.0-0.4) 08/27/18 03:58 Baso # 0.0 K/mm3 (0.0-0.1) 08/27/18 03:58 Add Manual Diff Complete 08/24/18 20:40 Total Counted 100 08/24/18 20:40 Seg Neutrophils % 88.7 % (40.0-70.0) H 08/27/18 03:58 Seg Neuts % (Manual) 34.0 % (40.0-70.0) L 08/24/18 20:40 0 % 08/24/18 20:40 52.0 % (13.4-35.0) H 08/24/18 20:40 Reactive Lymphs % (Man) 0 % 08/24/18 20:40 13.0 % (0.0-7.3) H 08/24/18 20:40 1.0 % (0.0-4.3) 08/24/18 20:40 0 % (0.0-1.8) 08/24/18 20:40 0 % 08/24/18 20:40 0 % 08/24/18 20:40 0 % 08/24/18 20:40 0 % 08/24/18 20:40 Nucleated RBC % Not Reportable 08/24/18 20:40 Seg Neutrophils # 5.7 K/mm3 (1.8-7.7) 08/27/18 03:58 Seg Neutrophils # Man 1.1 K/mm3 (1.8-7.7) L 08/24/18 20:40 Band Neutrophils # 0.0 K/mm3 08/24/18 20:40 1.7 K/mm3 (1.2-5.4) 08/24/18 20:40 Abs React Lymphs (Man) 0.0 K/mm3 08/24/18 20:40 0.4 K/mm3 (0.0-0.8) 08/24/18 20:40 0.0 K/mm3 (0.0-0.4) 08/24/18 20:40 0.0 K/mm3 (0.0-0.1) 08/24/18 20:40 0.0 K/mm3 08/24/18 20:40 0.0 K/mm3 08/24/18 20:40 0.0 K/mm3 08/24/18 20:40 Blast Cells # 0.0 K/mm3 08/24/18 20:40 WBC Morphology Not Reportable 08/24/18 20:40 Hypersegmented Neuts Not Reportable 08/24/18 20:40 Hyposegmented Neuts Not Reportable 08/24/18 20:40 Hypogranular Neuts Not Reportable 08/24/18 20:40 Not Reportable 08/24/18 20:40 Not Reportable 08/24/18 20:40 Not Reportable 08/24/18 20:40 Not Reportable 08/24/18 20:40 Not Reportable 08/24/18 20:40 Not Reportable 08/24/18 20:40 Appears decreased 08/24/18 20:40 Not Reportable 08/24/18 20:40 Plt Clumps, EDTA Not Reportable 08/24/18 20:40 Not Reportable 08/24/18 20:40 Not Reportable 08/24/18 20:40 Not Reportable 08/24/18 20:40 Plt Morphology Comment Not Reportable 08/24/18 20:40 RBC Morphology Not Reportable 08/24/18 20:40 Dimorphic RBCs Not Reportable 08/24/18 20:40 Not Reportable 08/24/18 20:40 Not Reportable 08/24/18 20:40 Not Reportable 08/24/18 20:40 Not Reportable 08/24/18 20:40 Not Reportable 08/24/18 20:40 Not Reportable 08/24/18 20:40 Not Reportable 08/24/18 20:40 Not Reportable 08/24/18 20:40 Not Reportable 08/24/18 20:40 Not Reportable 08/24/18 20:40 Not Reportable 08/24/18 20:40 Few 08/24/18 20:40 Not Reportable 08/24/18 20:40 Not Reportable 08/24/18 20:40 Not Reportable 08/24/18 20:40 Not Reportable 08/24/18 20:40 Not Reportable 08/24/18 20:40 Not Reportable 08/24/18 20:40 Not Reportable 08/24/18 20:40 Acanthocytes (Spur) Not Reportable 08/24/18 20:40 Rouleaux Not Reportable 08/24/18 20:40 Not Reportable 08/24/18 20:40 Not Reportable 08/24/18 20:40 Not Reportable 08/24/18 20:40 Not Reportable 08/24/18 20:40 Hem Pathologist Commnt No 08/24/18 20:40 PT 14.8 Sec. (12.2-14.9) 08/24/18 21:10 INR 1.19 (0.87-1.13) H 08/24/18 21:10 POC ABG pH 7.370 (7.35-7.45) 08/27/18 11:26 POC ABG pCO2 65.6 (35-45) H 08/27/18 11:26 POC ABG pO2 50 (80-105) L 08/27/18 11:26 POC ABG HCO3 37.9 (22-26 mml/L) 08/27/18 11:26 POC ABG Total CO2 40 (23-27mmol/L) 08/27/18 11:26 POC ABG O2 Sat 82 08/27/18 11:26 POC ABG Base Excess 13 ((-2) - (+3)mmol/L) 08/27/18 11:26 21 % 08/27/18 11:26 Sodium 139 mmol/L (137-145) 08/27/18 03:58 Potassium 4.8 mmol/L (3.6-5.0) 08/27/18 03:58 Chloride 95.7 mmol/L (98-107) L 08/27/18 03:58 Carbon Dioxide 33 mmol/L (22-30) H 08/27/18 03:58 15 mmol/L 08/27/18 03:58 BUN 22 mg/dL (9-20) H 08/27/18 03:58 0.7 mg/dL (0.8-1.5) L 08/27/18 03:58 Estimated GFR > 60 ml/min 08/27/18 03:58 31 % 08/27/18 03:58 Glucose 123 mg/dL (75-100) H 08/27/18 03:58 Calcium 9.8 mg/dL (8.4-10.2) 08/27/18 03:58 Magnesium 2.20 mg/dL (1.7-2.3) 08/24/18 21:10 103 units/L (55-170) 08/24/18 21:10 Active Medications - Current Medications Current Medications: Generic Name Dose Route Start Last Admin Trade Name Freq PRN Reason Stop Dose Admin Acetaminophen 650 mg 08/25/18 06:54 Tylenol PO Q6H PRN Pain Albuterol 2.5 mg 08/25/18 07:21 Proventil IH Q4HRT PRN Shortness Of Breath Albuterol/Ipratropium 1 ampul 08/27/18 08:00 08/28/18 20:19 Duoneb *Not For Prn Use* IH 1 ampul TIDRT PAIGE Administration Enoxaparin Sodium 40 mg 08/26/18 22:00 08/28/18 21:37 Lovenox SUB-Q 40 mg QDAY@2200 PAIGE Administration Guaifenesin 600 mg 08/26/18 22:40 08/28/18 21:37 Mucinex Er PO 600 mg BID PAIGE Administration Ibuprofen 600 mg 08/25/18 06:54 08/26/18 21:35 Ibuprofen PO 600 mg Q8H PRN Administration Pain Levofloxacin 750 mg 08/29/18 18:00 Levaquin PO QPM [facility] Methylprednisolone Sodium Succinate 40 mg 08/26/18 20:00 08/29/18 02:12 Solu-Medrol IV 40 mg Q6H PAIGE Administration Ondansetron HCl 4 mg 08/24/18 22:33 Zofran IV Q8H PRN Nausea And Vomiting Sodium Chloride 10 ml 08/24/18 23:00 08/28/18 21:38 Sodium Chloride Flush Syringe 10 Ml IV 10 ml BID PAIGE Administration Sodium Chloride 10 ml 08/24/18 22:33 08/28/18 16:49 Sodium Chloride Flush Syringe 10 Ml IV 10 ml PRN PRN Administration LINE FLUSH Nutrition/Malnutrition Assess - Dietary Evaluation Nutrition/Malnutrition Findings: Nutrition Notes Start: 08/26/18 17:35 Freq: Status: Active Protocol: Document 08/26/18 17:35 RM (Rec: 08/26/18 17:44 RM [id number]) Nutrition Notes Need for Assessment generated from: MD Ellis,MST Initial or Follow up Assessment Current Diagnosis COPD,Hypertension Current Diet Regular w/Ensure Enlive Vanilla BID Labs/Tests Reviewed Pertinent Medications Solu-Medrol Height 5 ft 3 in Weight 47.6 kg Usual Body Weight 54.55 kg [place] Body Weight (kg) 56.36 BMI 18.6 Weight change and time frame 12.7% wt loss X 6 months Subjective/Other Information Consulted for malnutrition and ONS diet. 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 Stated that he eats all of his meals here and that he drinks the Ensure Enlive. Noted 2 unopened Ensure Enlive at bedside. Pt stated that he has not gotten around to drinking them but will today. Stated UBW was 120 lbs 6 months ago. No temporal or orbital wasting . Percent of energy/protein needs met: 100%/100% Burn Absent Trauma Absent #2 Nutrition Diagnosis Underweight Comments: for older adult Etiology COPD As Evidenced by Signs and Symptoms BMI 18.6 #1 Nutrition Diagnosis Unintended weight loss Etiology COPD As Evidenced by Signs and Symptoms 12.7% wt loss X 6 months Is patient on ventilator? No Is Patient Ambulatory and/or Out of Bed Yes REE-([facility]-ambulatory/OOB) [ 1496.469 NUTR.MSJOOB] Kcal/Kg value to use for calculation 38 Approximate Energy Requirements Using 1809 kcal/Kg Calculation Used for Recommendations Kcal/kg Additional Notes Protein Needs: 57-71g (1.2-1. 5g/kg) Fluid Needs: 1 ml/kcal Nutrition Intervention Change Diet Order: Continue current Add Supplement/Snack (indicate name/kcal Ensure Enlive Vanilla BID /protein ) Provides kCal: 700 Provides Protein (gm) 40 Goal #1 Continue to meet least 75% of calorie and protein needs via PO and ONS intakes Goal #2 Wt gain/maintenance Anticipated Discharge Needs: Regular diet Follow-Up By: 09/02/18 Additional Comments Follow for PO and ONS intakes
[2018-08-29] MEDS: DUONEB *Not for PRN Use IH SCH ×3 (07:42→15:43)
[2018-08-29] MEDS: MUCINEX ER PO SCH (09:21)
[2018-08-29] MEDS: SODIUM CHLORIDE FLUSH SYRINGE 10 ML IV SCH (09:22)
--- NOTE | 2018-08-29 14:25 | Discharge Summary ---
Providers - Providers Date of Admission: 08/24/18 22:33 Date of discharge: 08/29/18 Attending physician: CHEPE GARVEY 08/24/18 23:41 Consult to Dietitian/Nutrition [CONS] Routine Physician Instructions: Reason For Exam: Reason for Consult: Malnutrition 08/26/18 15:31 Consult to Physician [CONS] Routine Comment: Consulting Provider: SEBASTIAN POWER Physician Instructions: Reason For Exam: copd exacerbation 08/27/18 12:39 Physical Therapy Evaluation and Treat [CONS] Routine Comment: Reason For Exam: weakness/sob with activity 08/27/18 12:40 Occupational Therapy Evaluate and Treat [CONS] Routine Comment: Reason For Exam: weakness/sob with activity [facility] Reason for admission: worsening shortness of breath/acute on chronic respiratory failure Condition: Fair Pertinent studies: Chest x-ray findings consistent with COPD; Hospital course: Patient is a 67-year-old male with PMHx of COPD (home O2 dependent), hypertension, tobacco use disorder who presents to the ER with complaints of productive cough, wheezing, shortness of breath 2 days. Patient states that he had been having trouble breathing at home, he took his nebulizer treatment without relief of his symptoms, patient also reports that the symptoms are associated with shortness of breath, cough. Patient states that he had been coughing for 2 days with whitish sputum production, he complains of increase shortness of breath with activities, chest congestion that has been going on for a week. Patient managed with oxygen nebulizers IV antibiotics tapering dose of IV steroids See physical therapy, who recommended SNF/rehabilitation placement Case management has set up placement and transferred upon discharge Today patient is comfortable pneumonia complaints Signs stable physical examination unremarkable Stable at discharge Discharge diagnosis; --Acute bronchitis; bronchodilators, oxygen Antibiotics and supportive care, cough medicine --COPD with acute exacerbation: Oxygen titrate O2 sats to more than 90%, nebulizers Tapering dose of IV steroids, IV antibiotics, cough medicine Inhalation steroids, admitted following Evaluation for home oxygen at discharge --Acute hypoxic respiratory failure Secondary to COPD exacerbation Improvement of symptoms, continue current management --HTN ; well controlled. Continue current antihypertensives and when necessary medications --Ongoing tobacco use ; smoking cessation nicotine patch as needed --Thrombocytopenia; monitor levels --Ambulate as tolerated Stable to be discharged and transferred to SNF today Disposition: [id number]/[facility]-03 SNF [facility] Time spent for discharge: 32 min Core Measure Documentation - Palliative Care Palliative Care/ Comfort Measures: Not Applicable - Core Measures Any of the following diagnoses?: none Exam - Constitutional Vitals: Temp Pulse Resp BP Pulse Ox 98.6 F 99 H 20 115/89 98 08/29/18 08:02 08/29/18 10:13 08/29/18 10:13 08/29/18 08:02 08/29/18 08:02 General appearance: Present: no acute distress, well-nourished - EENT Eyes: Present: PERRL, EOM intact - Neck Neck: Present: supple, normal ROM - Respiratory Respiratory effort: normal Respiratory: bilateral: CTA, diminished, wheezing - Cardiovascular Rhythm: regular Heart Sounds: Present: S1 & S2 - Extremities Extremities: no ischemia, No edema - Abdominal General gastrointestinal: Present: soft, non-tender, non-distended, hypoactive bowel sounds - Integumentary Integumentary: Present: clear, warm - Musculoskeletal Musculoskeletal: strength equal bilaterally - Psychiatric Psychiatric: cooperative - Neurologic Neurologic: CNII-XII intact Plan Activity: advance as tolerated, fall precautions Diet: regular, low fat Additional Instructions: Continue oxygen 2-3 L nasal cannula as needed Follow up with: ZAKIA SORIA MD [Primary Care Provider] - 3-5 Days SEBASTIAN POWER MD [Staff Physician] - 7 Days Prescriptions: levoFLOXacin [Levaquin TAB] 750 mg PO DAILY #4 tablet Prednisone [predniSONE 10 mg (6-Day Pack, 21 Tabs)] 10 mg PO .TAPER #1 tab.ds.pk
[2018-08-29 15:05] VITALS: BP 109/78
[2018-08-29] MEDS ORDERED: LEVAQUIN PO SCH (18:00)
== END 2018-08-29 17:04 | DRG 189 ==
LOC: ED 20:08 → 4A 22:33 → 2B-ACE 08-27 16:25
PROVIDERS: ADMIT Internal Medicine; ATTEND Internal Medicine
PROC: 3E0234Z Introduction of Serum, Toxoid and Vaccine into Muscle, Percutaneous Approach (ICD-10-PCS; 2018-08-25)
PROC: 4A033R1 Measurement of Arterial Saturation, Peripheral, Percutaneous Approach (ICD-10-PCS; principal; 2018-08-27)
DX: J96.01 Acute respiratory failure with hypoxia (principal); D69.6 Thrombocytopenia, unspecified; J43.9 Emphysema, unspecified; J20.9 Acute bronchitis, unspecified; Z23 Encounter for immunization; Z99.81 Dependence on supplemental oxygen; Z87.891 Personal history of nicotine dependence
CPT/HCPCS: 36415; 36600; 71045; 80048; 82550; 82803; 83735; 85007; 85025; 85610; 90732; 93005; 93010; 94640; 94760; G0378; J1650; J1956; J2920; J2930; J7030